=== PATIENT | male | born 1930 | race Caucasian/White ===

== ENCOUNTER 2016-11-18 13:51 | Inpatient (IN) | payer MEDICARE, OTHER ==
--- NOTE | 2016-11-18 14:34 | EDM.PDOC ---
ED HPI GENERAL MEDICAL PROBLEM - General Chief Complaint: Cardiovascular Problem Stated Complaint: SOB Time Seen by Provider: 11/18/16 14:05 Source of Information: Reports: Patient, EMS, Old Records History Limitations: Reports: Other (poor historian) - History of Present Illness INITIAL COMMENTS - FREE TEXT/NARRATIVE: 85 yo male was seen in the clinic today in follow up for SOB. Was seen a few days ago and started on Azithromycin and his furosemide dose was increased to 60 mg qd initially, then 2 days ago to 80 mg qd. No fever. No pain. Lab work available from 5 days ago shows anemia. Onset: Gradual Onset Date: 11/12/16 Duration: Day(s): Location: Reports: Chest Quality: Reports: Other (no pain) Severity: Moderate Improves with: Reports: Rest (and oxygen) Worsens with: Reports: Movement Context: Reports: Other (Hx of CHF and pneumonia) Associated Symptoms: Reports: Shortness of Breath. Denies: Fever/Chills Treatments MEDICAL TRANSCRIPTIONIST: Reports: Other (see below) (furosemide/azithromycin/increase in oxygen) - Related Data Allergies Allergy/AdvReac Type Severity Reaction Status Date / Time cephalexin monohydrate Allergy Hives Verified 04/23/16 13:04 [From Keflex] iodine Allergy Hives Verified 04/23/16 13:04 Home Meds: Home Meds Clopidogrel [Plavix] 75 mg PO DAILY 12/07/12 [History] Finasteride [Proscar] 5 mg PO DAILY 12/07/12 [History] Isosorbide Mononitrate [Imdur] 30 mg PO DAILY 12/07/12 [History] Terazosin [Hytrin] 4 mg PO BEDTIME 12/07/12 [History] Lutein/Minerals/Vit A,C & E [Ocuvite] 1 tab PO DAILY 03/02/15 [History] Albuterol [Proventil HFA] 2 puff INH Q4H PRN 03/11/16 [History] Tiotropium [Spiriva Handihaler] 1 puff INH DAILY 03/11/16 [History] glipiZIDE [Glucotrol] 2.5 mg PO DAILY 03/11/16 [History] Albuterol [Proventil Neb Soln] 2.5 mg NEB Q4H PRN 04/23/16 [History] Aspirin 81 mg PO DAILY 04/23/16 [History] Carvedilol 3.125 mg PO DAILY 04/23/16 [History] Compressor, For Nebulizer [Pulmo-Aide] 1 each MC TID 04/23/16 [History] Donepezil [Aricept] 5 mg PO BEDTIME 04/23/16 [History] Furosemide [Lasix] 80 mg PO DAILY 04/23/16 [History] Lisinopril 2.5 mg PO DAILY 04/23/16 [History] Polyethylene Glycol 3350 [MiraLAX] 17 gm PO DAILY PRN 04/23/16 [History] Simvastatin [Zocor] 10 mg PO BEDTIME 04/23/16 [History] Past Medical History HEENT History: Reports: Hard of Hearing, Impaired Vision Cardiovascular History: Reports: Bypass, Heart Failure Other Cardiovascular History: CABG Respiratory History: Reports: COPD, Intubation, Previous, SOB Gastrointestinal History: Reports: Bowel Obstruction Other Gastrointestinal History: bowel resection; bowel obstruction Musculoskeletal History: Reports: Arthritis, Fracture Neurological History: Reports: CVA Psychiatric History: Reports: Other (See Below) Other Psychiatric History: forgetfullness - Infectious Disease History Infectious Disease History: Reports: Chicken Pox, Hepatitis non A,B,C, Measles, Mononucleosis, Mumps, Pertussis (Whooping Cough), Shingles - Past Surgical History HEENT Surgical History: Reports: Cataract Surgery, Tonsillectomy Cardiovascular Surgical History: Reports: Coronary Artery Bypass, Coronary Artery Stent GI Surgical History: Reports: None, Hernia, Abdominal Musculoskeletal Surgical History: Reports: Hip Replacement, Knee Replacement Social & Family History - Family History Family Medical History: Noncontributory Other Cardiac Family History: maternal grandpa had a bad heart. Other Respiratory Family Hisory: pat is unsure OBGYN: Reports: Musculoskeletal: Reports: Arthritis Neurological: Reports: Alzheimers Disease, Dementia Hematologic: Reports: None Other Oncologic Family History: yes but he doese not remember which kinds. - Tobacco Use Smoking Status *Q: Never Smoker Years of Tobacco use: 50 Used Tobacco, but Quit: Yes Month Tobacco Last Used: February Second Hand Smoke Exposure: No - Caffeine Use Caffeine Use: Reports: None - Alcohol Use Days Per Week of Alcohol Use: 0 - Recreational Drug Use Recreational Drug Use: No Drug Use in Last 12 Months: No ED ROS GENERAL - Review of Systems Review Of Systems: See Below Constitutional: Reports: No Symptoms HEENT: Reports: No Symptoms Respiratory: Reports: Shortness of Breath. Denies: Wheezing, Pleuritic Chest Pain, Cough, Sputum, Hemoptysis Cardiovascular: Reports: No Symptoms Endocrine: Reports: No Symptoms GI/Abdominal: Reports: No Symptoms : Reports: No Symptoms Musculoskeletal: Reports: No Symptoms Skin: Reports: No Symptoms Neurological: Reports: No Symptoms Psychiatric: Reports: No Symptoms ED EXAM, GENERAL - Physical Exam Exam: See Below Exam Limited By: No Limitations General Appearance: Alert, WD/WN, No Apparent Distress Eye Exam: Bilateral Eye: Conjunctival Injection (pallor present) Ears: Normal External Exam, Normal Canal Ear Exam: Bilateral Ear: Auricle Normal, Canal Normal Nose: Normal Inspection, Normal Mucosa, No Blood Throat/Mouth: Normal Inspection, Normal Lips, Normal Teeth, Normal Oropharynx, Normal Voice, No Airway Compromise Head: Atraumatic, Normocephalic Neck: Normal Inspection, Supple, Non-Tender Respiratory/Chest: No Respiratory Distress, No Accessory Muscle Use, Decreased Breath Sounds (decreased BS at R base today. ) Cardiovascular: Regular Rate, Rhythm, No Edema, Bradycardia GI/Abdominal: Soft, Non-Tender, Pelvis Stable, Distended (mild) Back Exam: Normal Inspection. No: CVA Tenderness (R), CVA Tenderness (L) Extremities: Normal Inspection, Normal Range of Motion, Non-Tender Neurological: Alert, Oriented, CN II-XII Intact, No Motor/Sensory Deficits Psychiatric: Normal Affect, Normal Mood Skin Exam: Warm, Dry, Intact, Normal Color, No Rash, Pallor Lymphatic: No Adenopathy EKG INTERPRETATION EKG Date: 11/18/16 Time: 13:55 Rhythm: NSR Rate (Beats/Min): 82 [place]: Normal P-Wave: Present QRS: LBBB ST-T: Normal QT: Normal EKG Interpretation Comments: intermittent bigeminal rhythm is new. Course - Vital Signs Last Recorded V/S: Last Vital Signs Temp Pulse Resp BP Pulse Ox 96 11/18/16 14:10 - Orders/Labs/Meds Orders: Active Orders 24 hr Category Date Time Status Cardiac Monitoring [RC] .As Directed Care 11/18/16 13:57 Active Chest 1V Frontal [CR] Stat Exams 11/18/16 13:57 Taken MAGNESIUM [CHEM] Stat Lab 11/18/16 14:15 Received UA W/MICROSCOPIC [URIN] Stat Lab 11/18/16 13:58 Uncollected Sodium Chloride 0.9% [Saline Flush] Med 11/18/16 13:56 Active 10 ml FLUSH ASDIRECTED PRN Saline Lock Insert [OM.PC] Routine Oth 11/18/16 13:56 Ordered EKG 12 Lead [EK] Routine Ther 11/18/16 13:57 Ordered Medication Orders Sodium Chloride (Saline Flush) 10 ml FLUSH ASDIRECTED PRN PRN Reason: Keep Vein Open Labs: Laboratory Tests 11/18/16 11/18/16 11/18/16 Range/Units 14:15 14:15 14:15 WBC 6.5 (4.5-12.0) X10-3/uL RBC 3.43 L (4.30-5.75) x10(6)uL Hgb 10.3 L (11.5-15.5) g/dL Hct 30.9 (30.0-51.3) % MCV 90.3 (80-96) fL MCH 29.9 (27.7-33.6) pg MCHC 33.2 (32.2-35.4) g/dL RDW 13.9 (11.5-15.5) % Plt Count 206 (125-369) X10(3)uL Sodium 140 (135-145) mmol/L Potassium 2.6 L* D (3.5-5.3) mmol/L Chloride 105 (100-110) mmol/L Carbon Dioxide 27 (23-29) mmol/L BUN 31 H (8-23) mg/dL Creatinine 1.6 H (0.6-1.3) mg/dL Est Cr Clr Drug Dosing TNP Estimated GFR (MDRD) 41 L (>60) BUN/Creatinine Ratio 19.4 (9-20) Glucose 142 H (80-116) mg/dL Calcium 8.6 (8.6-10.2) mg/dL Troponin I 0.10 H (0.02-0.06) NG/ML B-Natriuretic Peptide (0-100) pg/mL 11/18/16 Range/Units 14:15 WBC (4.5-12.0) X10-3/uL RBC (4.30-5.75) x10(6)uL Hgb (11.5-15.5) g/dL Hct (30.0-51.3) % MCV (80-96) fL MCH (27.7-33.6) pg MCHC (32.2-35.4) g/dL RDW (11.5-15.5) % Plt Count (125-369) X10(3)uL Sodium (135-145) mmol/L Potassium (3.5-5.3) mmol/L Chloride (100-110) mmol/L Carbon Dioxide (23-29) mmol/L BUN (8-23) mg/dL Creatinine (0.6-1.3) mg/dL Est Cr Clr Drug Dosing Estimated GFR (MDRD) (>60) BUN/Creatinine Ratio (9-20) Glucose (80-116) mg/dL Calcium (8.6-10.2) mg/dL Troponin I (0.02-0.06) NG/ML B-Natriuretic Peptide 786 H (0-100) pg/mL Meds: Medications Generic Name Dose Route Start Last Admin Trade Name Freq PRN Reason Stop Dose Admin Sodium Chloride 10 ml 11/18/16 13:56 Saline Flush FLUSH ASDIRECTED PRN Keep Vein Open Discontinued Medications Generic Name Dose Route Start Last Admin Trade Name Freq PRN Reason Stop Dose Admin Potassium Chloride 40 meq 11/18/16 15:00 Klor-Con M20 PO 11/18/16 15:01 ONETIME ONE - Radiology Interpretation Free Text/Narrative:: CXR- Departure - Departure Time of Disposition: 15:13 Disposition: Admitted As Inpatient 66 Condition: Fair Clinical Impression: Hypokalemia, Hypoxia, Pleural effusion, Bigeminy CHF (congestive heart failure) Qualifiers: Congestive heart failure type: unspecified congestive heart failure type Congestive heart failure chronicity: acute on chronic Qualified Code(s): I50.9 - Heart failure, unspecified Pneumonia Qualifiers: Pneumonia type: due to unspecified organism Anemia Qualifiers: Anemia type: unspecified type Qualified Code(s): D64.9 - Anemia, unspecified Referrals: Kervin Santa MD [Primary Care Provider] - Forms: ED Department Discharge - My Orders Last 24 Hours: My Active Orders 11/18/16 13:56 Sodium Chloride 0.9% [Saline Flush] 10 ml FLUSH ASDIRECTED PRN Saline Lock Insert [OM.PC] Routine 11/18/16 13:57 Cardiac Monitoring [RC] .As Directed Chest 1V Frontal [CR] Stat EKG 12 Lead [EK] Routine 11/18/16 13:58 UA W/MICROSCOPIC [URIN] Stat 11/18/16 14:15 MAGNESIUM [CHEM] Stat - Assessment/Plan Last 24 Hours: My Active Orders 11/18/16 13:56 Sodium Chloride 0.9% [Saline Flush] 10 ml FLUSH ASDIRECTED PRN Saline Lock Insert [OM.PC] Routine 11/18/16 13:57 Cardiac Monitoring [RC] .As Directed Chest 1V Frontal [CR] Stat EKG 12 Lead [EK] Routine 11/18/16 13:58 UA W/MICROSCOPIC [URIN] Stat 11/18/16 14:15 MAGNESIUM [CHEM] Stat
[2016-11-18] MEDS ORDERED: Potassium Chloride 10 MEQ Tab.ER PO ONE (14:44)
[2016-11-18] MEDS ORDERED: Potassium Chloride 20 MEQ Tab.ER PO ONE (15:00)
--- NOTE | 2016-11-18 15:15 | CR ---
INDICATION: Short of breath. CHEST: AP upright portable view of the chest 11/18/2016, was compared with 09/2016, 04/10/2016(Lam image), and 11/13/2016 examinations. The heart appears somewhat enlarged. Evidence of previous median sternotomy is noted. Overlying EKG leads are noted. Pleuroparenchymal changes are noted on the right and to a much lesser extent on the left. It may represent pneumonia and pleuritis, possibly due to aspiration. Heavy markings centrally may also be on that basis, although interstitial lung edema in a patient with CHF would also be a consideration. Relatively minor similar changes were present on the previous examination. IMPRESSION: 1. Bibasilar pleuroparenchymal changes, right much greater than left, may be on the basis of pneumonia and pleuritis, possibly due to aspiration - correlate clinically. 2. Possible CHF and interstitial lung edema. 3. Post-surgical mediastinum. Report was called to Dr. Gill at 1458 hours, 11/18/2016. [facility]
[2016-11-18] MEDS ORDERED: Polyethylene Glycol 3350 Powder 17 GM Packet PO PRN ×2 (15:21→17:42)
[2016-11-18] MEDS ORDERED: Ondansetron 4 MG Tab.DIS PO PRN (15:21)
[2016-11-18] MEDS: Sodium Chloride 0.9% 10 ML Syringe FLUSH PRN ×3 (15:21→23:52)
[2016-11-18] MEDS ORDERED: Acetaminophen 325 MG Tab PO PRN ×2 (15:21→17:42)
[2016-11-18] MEDS ORDERED: Sodium Chloride 0.9% 250 ML IV SCH (16:40)
[2016-11-18] MEDS: Levofloxacin/Dextrose 5%-Water 500 MG in Premix Bag 1 BAG IV SCH (16:40)
[2016-11-18] MEDS: Potassium Chloride 20 MEQ Tab.ER PO SCH ×2 (16:43→20:50)
[2016-11-18] MEDS: Spironolactone 25 MG Tab PO SCH (16:44)
[2016-11-18] MEDS: Albuterol 0.083% 2.5 MG/3 ML Neb Soln NEB PRN (16:57)
--- NOTE | 2016-11-18 17:37 | PCM.HP ---
H&P History of Present Illness - General Date of Service: 11/18/16 Source of Information: Patient, Family History Limitations: Reports: No Limitations - History of Present Illness Initial Comments - Free Text/Narative: This is an 85-year-old male patient with known history of CHF and COPD comes in to the clinic and was diagnosed with pneumonia and CHF. Increase Lasix and gave Zithromax. He came back and is more short of breath and sent to the ER. He was admitted. Patient states he's been more short of breath for the last week. He has a dry cough. He feels like he should cough something up but it is not there. He feels cool at times but no chills or fevers. No nasal congestion, ear pain, sore throat. He does have no chest pain this time. He was in the hospital in the spring for COPD and pneumonia. - Related Data Allergies/Adverse Reactions: Allergies Allergy/AdvReac Type Severity Reaction Status Date / Time cephalexin monohydrate Allergy Hives Verified 11/18/16 17:02 [From Novatel Wireless] iodine Allergy Hives Verified 11/18/16 17:02 Home Medications: Home Meds Clopidogrel [Plavix] 75 mg PO DAILY 12/07/12 [History] Finasteride [Proscar] 5 mg PO DAILY 12/07/12 [History] Isosorbide Mononitrate [Imdur] 30 mg PO DAILY 12/07/12 [History] Terazosin [Hytrin] 4 mg PO BEDTIME 12/07/12 [History] Lutein/Minerals/Vit A,C & E [Ocuvite] 1 tab PO DAILY 03/02/15 [History] Albuterol [Proventil HFA] 2 puff INH Q4H PRN 03/11/16 [History] Tiotropium [Spiriva Handihaler] 1 puff INH DAILY 03/11/16 [History] glipiZIDE [Glucotrol] 2.5 mg PO DAILY 03/11/16 [History] Albuterol [Proventil Neb Soln] 2.5 mg NEB Q4H PRN 04/23/16 [History] Aspirin 81 mg PO DAILY 04/23/16 [History] Carvedilol 3.125 mg PO DAILY 04/23/16 [History] Compressor, For Nebulizer [Pulmo-Aide] 1 each MC TID 04/23/16 [History] Donepezil [Aricept] 5 mg PO BEDTIME 04/23/16 [History] Furosemide [Lasix] 80 mg PO DAILY 04/23/16 [History] Lisinopril 2.5 mg PO DAILY 04/23/16 [History] Polyethylene Glycol 3350 [MiraLAX] 17 gm PO DAILY PRN 04/23/16 [History] Simvastatin [Zocor] 10 mg PO BEDTIME 04/23/16 [History] Acetaminophen [Tylenol] 650 mg PO Q4H PRN 11/18/16 [History] Albuterol/Ipratropium [DuoNeb 3.0-0.5 MG/3 ML] 3 ml IH Q4H PRN 11/18/16 [History ] Bisacodyl 10 mg RECTAL DAILY PRN 11/18/16 [History] Lactulose 10 gm PO DAILY PRN 11/18/16 [History] Magnesium Hydroxide [Milk of Magnesia] 30 ml PO DAILY PRN 11/18/16 [History] Polyethylene Glycol 3350 [MiraLAX] 17 gm PO DAILY PRN 11/18/16 [History] Past Medical History HEENT History: Reports: Hard of Hearing, Impaired Vision Cardiovascular History: Reports: Bypass, Heart Failure Other Cardiovascular History: CABG Respiratory History: Reports: COPD, Intubation, Previous, SOB Gastrointestinal History: Reports: Bowel Obstruction Other Gastrointestinal History: bowel resection; bowel obstruction Musculoskeletal History: Reports: Arthritis, Fracture Neurological History: Reports: CVA Psychiatric History: Reports: Other (See Below) Other Psychiatric History: forgetfullness - Infectious Disease History Infectious Disease History: Reports: Chicken Pox, Hepatitis non A,B,C, Measles, Mononucleosis, Mumps, Pertussis (Whooping Cough), Shingles - Past Surgical History HEENT Surgical History: Reports: Cataract Surgery, Tonsillectomy Cardiovascular Surgical History: Reports: Coronary Artery Bypass, Coronary Artery Stent GI Surgical History: Reports: None, Hernia, Abdominal Musculoskeletal Surgical History: Reports: Hip Replacement, Knee Replacement Social & Family History - Family History Family Medical History: Noncontributory Other Cardiac Family History: maternal grandpa had a bad heart. Other Respiratory Family Hisory: pat is unsure OBGYN: Reports: Musculoskeletal: Reports: Arthritis Neurological: Reports: Alzheimers Disease, Dementia Hematologic: Reports: None Other Oncologic Family History: yes but he doese not remember which kinds. - Tobacco Use Smoking Status *Q: Former Smoker Years of Tobacco use: 50 Used Tobacco, but Quit: Yes Month Tobacco Last Used: Quit 6 years ago Second Hand Smoke Exposure: No - Caffeine Use Caffeine Use: Reports: Coffee - Alcohol Use Days Per Week of Alcohol Use: 0 - Recreational Drug Use Recreational Drug Use: No Drug Use in Last 12 Months: No H&P Review of Systems - Review of Systems: Review Of Systems: See Below General: Reports: No Symptoms HEENT: Reports: No Symptoms Pulmonary: Reports: Shortness of Breath, Cough. Denies: Wheezing, Sputum, Hemoptysis Cardiovascular: Reports: Edema Gastrointestinal: Reports: Constipation Genitourinary: Reports: No Symptoms Musculoskeletal: Reports: No Symptoms Skin: Reports: No Symptoms Psychiatric: Reports: No Symptoms Neurological: Reports: No Symptoms Hematologic/Lymphatic: Reports: No Symptoms Immunologic: Reports: No Symptoms Exam - Exam Exam: See Below - Vital Signs Vital Signs: Last Vital Signs Temp 98 F 11/18/16 15:46 Pulse 77 11/18/16 15:46 Resp 20 11/18/16 15:46 BP 121/58 L 11/18/16 15:46 Pulse Ox 96 11/18/16 15:49 Weight: 176 lb 1.6 oz - Exam General: Alert, Oriented, Cooperative. No: Mild Distress HEENT: PERRLA, Hearing Intact, Posterior Pharynx Clear, Pupils Reactive, TMs Clear Neck: Supple, Trachea Midline. No: +2 Carotid Pulse wo Bruit, Lymphadenopathy Lungs: Normal Respiratory Effort, Decreased Breath Sounds, Crackles Cardiovascular: Regular Rate, Regular Rhythm. No: Systolic Murmur, Diastolic Murmur GI/Abdominal Exam: Normal Bowel Sounds, Soft, Non-Tender, No Organomegaly, No Distention, No Abnormal Bruit, No Mass Back Exam: Normal Inspection Extremities: Pedal Edema Skin: Warm, Dry, Intact Neuro Extensive - Mental Status: Alert, Oriented x3, Normal Mood/Affect, Normal Cognition Psychiatric: Alert, Normal Affect, Normal Mood - Patient Data Lab Results Last 24 hrs: Laboratory Results - last 24 hr 11/18/16 Range/Units 16:55 Urine Color Yellow (YELLOW) Urine Appearance Clear (CLEAR) Urine pH 5.0 (5.0-6.5) Ur Specific [place] 1.015 (1.010-1.025) Urine Protein Negative (NEGATIVE) mg/dL Urine Glucose (UA) Normal (NEGATIVE) mg/dL Urine Ketones Negative (NEGATIVE) mg/dL Urine Occult Blood Negative (NEGATIVE) Urine Nitrite Negative (NEGATIVE) Urine Bilirubin Negative (NEGATIVE) Urine Urobilinogen Normal (NEGATIVE) mg/dL Ur Leukocyte Esterase Negative (NEGATIVE) Urine RBC 0-5 (0) Urine WBC 0-5 (0) Ur Squamous Epith Cells Occasional (NS,R,O) Urine Bacteria Rare H (NS) Result Diagrams: 11/18/16 14:15 11/18/16 14:15 *Q Meaningful Use (ADM) - VTE *Q VTE Criteria *Q: - Stroke *Q Stroke Criteria *Q: - AMI *Q AMI Criteria *Q: - Problem List (1) Palliative care status SNOMED Code(s): 281986155 ICD Code: Z51.5 - ENCOUNTER FOR PALLIATIVE CARE Status: Acute Current Visit: Yes (2) Anemia SNOMED Code(s): 877206537 ICD Code: D64.9 - ANEMIA, UNSPECIFIED Status: Acute Current Visit: Yes Qualifiers: Anemia type: unspecified type Qualified Code(s): D64.9 - Anemia, unspecified (3) CHF (congestive heart failure) SNOMED Code(s): 33478725 ICD Code: I50.9 - HEART FAILURE, UNSPECIFIED Status: Acute Current Visit : Yes Qualifiers: Congestive heart failure type: unspecified congestive heart failure type Congestive heart failure chronicity: acute on chronic Qualified Code(s): I50.9 - Heart failure, unspecified (4) Hypokalemia SNOMED Code(s): 60197254 ICD Code: E87.6 - HYPOKALEMIA Status: Acute Current Visit: Yes (5) Pneumonia SNOMED Code(s): 719516971 ICD Code: J18.9 - PNEUMONIA, UNSPECIFIED ORGANISM Status: Acute Current Visit: Yes Qualifiers: Pneumonia type: due to unspecified organism (6) COPD (chronic obstructive pulmonary disease) SNOMED Code(s): 60499018 ICD Code: J44.9 - CHRONIC OBSTRUCTIVE PULMONARY DISEASE, UNSPECIFIED Status : Acute Current Visit: No (7) Type 2 diabetes mellitus SNOMED Code(s): 36872540 ICD Code: E11.9 - TYPE 2 DIABETES MELLITUS WITHOUT COMPLICATIONS Status: Acute Current Visit: No (8) Chronic kidney disease, stage III (moderate) SNOMED Code(s): 134542576 ICD Code: N18.3 - CHRONIC KIDNEY DISEASE, STAGE 3 (MODERATE) Status: Chronic Priority: Medium Current Visit: No Problem Details: Stable Cr 1.4-1.6. Problem List Initiated/Reviewed/Updated: Yes Orders Last 24hrs: Active Orders 24 hr Category Date Time Status Albuterol [Proventil Neb Soln] Med 11/18/16 15:55 Active 2.5 mg NEB Q4H PRN Albuterol [Ventolin HFA] Med 11/18/16 15:55 Active 0 gm INH Q4H PRN Aspirin Med 11/19/16 09:00 Active 81 mg PO DAILY Carvedilol [Coreg] Med 11/19/16 09:00 Active 3.125 mg PO DAILY Clopidogrel [Plavix] Med 11/19/16 09:00 Active 75 mg PO DAILY Donepezil [Aricept] Med 11/18/16 21:00 Active 5 mg PO BEDTIME Finasteride [Proscar] Med 11/19/16 09:00 Active 5 mg PO DAILY Furosemide [Lasix] Med 11/19/16 09:00 Active 80 mg PO DAILY Isosorbide Mononitrate [Imdur] Med 11/19/16 09:00 Active 30 mg PO DAILY Levofloxacin/Dextrose 5%-Water [Levaquin in D5W 500 MG/ Med 11/18/16 15:30 Active 100 ML] 500 mg Premix Bag 1 bag IV Q24H Lisinopril [Prinivil] Med 11/19/16 09:00 Active 2.5 mg PO DAILY Potassium Chloride [Klor-Con M20] Med 11/18/16 15:30 Active 20 meq PO TID Simvastatin [Zocor] Med 11/18/16 21:00 Active 10 mg PO BEDTIME Terazosin [Hytrin] Med 11/18/16 21:00 Active 4 mg PO BEDTIME Tiotropium [Spiriva HandiHaler] Med 11/19/16 09:00 Active 18 mcg INH DAILY glipiZIDE [Glucotrol] Med 11/19/16 09:00 Active 2.5 mg PO DAILY Medication Orders Acetaminophen (Tylenol) 650 mg PO Q4H PRN PRN Reason: Pain (Mild 1-3)/fever Albuterol (Ventolin Hfa) 0 gm INH Q4H PRN PRN Reason: Shortness of Breath Albuterol (Proventil Neb Soln) 2.5 mg NEB Q4H PRN PRN Reason: SOB/WHEEZING/COUGH Aspirin (Aspirin) 81 mg PO DAILY [facility] Carvedilol (Coreg) 3.125 mg PO DAILY [place] Clopidogrel Bisulfate (Plavix) 75 mg PO DAILY [place] Donepezil HCl (Aricept) 5 mg PO BEDTIME [place] Finasteride (Proscar) 5 mg PO DAILY [facility] Furosemide (Lasix) 80 mg PO DAILY [place] Glipizide (Glucotrol) 2.5 mg PO DAILY [place] Levofloxacin/Dextrose 500 mg/ (Premix) 100 mls @ 100 mls/hr IV Q24H [facility] Last Admin: 11/18/16 16:40 Dose: 100 mls/hr Isosorbide Mononitrate (Imdur) 30 mg PO DAILY [facility] Lisinopril (Prinivil) 2.5 mg PO DAILY [facility] Ondansetron HCl (Zofran Odt) 4 mg PO Q6H PRN PRN Reason: nausea, able to take PO Polyethylene Glycol (Miralax) 17 gm PO DAILY PRN PRN Reason: Constipation Potassium Chloride (Klor-Con M20) 20 meq PO TID [facility] Last Admin: 11/18/16 16:43 Dose: 20 meq Simvastatin (Zocor) 10 mg PO BEDTIME [place] Sodium Chloride (Saline Flush) 10 ml FLUSH ASDIRECTED PRN PRN Reason: Keep Vein Open Last Admin: 11/18/16 15:21 Dose: 10 ml Spironolactone (Aldactone) 25 mg PO DAILY [facility] Last Admin: 11/18/16 16:44 Dose: 25 mg Terazosin HCl (Hytrin) 4 mg PO BEDTIME [place] Tiotropium [place] (Spiriva Handihaler) 18 mcg INH DAILY [facility] Assessment/Plan Comment:: 1. Admit to the hospital. 2. Discuss CODE STATUS needle wants to be a DNR/DNI 3. VTE prophylaxis 4. Antibiotics 5. IV Lasix. 6. Granados catheter so the patient can be comfortable night with IV Lasix. 7. SVNs 8. Hold off on steroids at this time but may consider if he is not improving. 9. ADA diet 10. Up with assist.
[2016-11-18] MEDS ORDERED: Furosemide 40 MG/4 ML VIAL IVPUSH ONE (17:39)
[2016-11-18] MEDS ORDERED: Bisacodyl 10 MG Supp RECTAL PRN (17:42)
[2016-11-18] MEDS ORDERED: Magnesium Hydroxide 400 MG/5 ML Susp 30 ML Cup PO PRN (17:42)
[2016-11-18] MEDS ORDERED: Polyethylene Glycol 3350 Powder 238 GM Bot PO PRN (17:42)
[2016-11-18] MEDS: Albuterol 8 GM Inhaler INH PRN (17:50)
[2016-11-18] MEDS: Albuterol/Ipratropium 3.0-0.5 MG/3 ML Neb Soln NEB PRN ×2 (17:59→22:51)
[2016-11-18] MEDS: Morphine 2 MG/ML Syringe IVPUSH PRN ×2 (18:58→23:50)
[2016-11-18] MEDS: Donepezil 5 MG Tab PO SCH (20:48)
[2016-11-18] MEDS: Simvastatin 10 MG Tab PO SCH (20:51)
[2016-11-18] MEDS ORDERED: [UNRECOGNIZED DRUG - SUPPLY] MC SCH (21:00)
[2016-11-18] MEDS: Enoxaparin 30 MG/0.3 ML Syringe SUBCUT SCH (21:12)
[2016-11-19] MEDS: Morphine 2 MG/ML Syringe IVPUSH PRN ×2 (03:40→05:31)
[2016-11-19] MEDS: Albuterol/Ipratropium 3.0-0.5 MG/3 ML Neb Soln NEB PRN ×4 (03:44→20:45)
[2016-11-19] MEDS ORDERED: Enoxaparin 80 MG/0.8 ML Syringe SUBCUT ONE ×2 (04:44)
[2016-11-19] MEDS ORDERED: Furosemide 100 MG/10 ML SDV IVPUSH ONE (08:06)
[2016-11-19] MEDS: methylPREDNISolone Sodium Succinate 125 MG/2 ML SDV IVPUSH SCH ×2 (08:36→16:10)
[2016-11-19] MEDS: Sodium Chloride 0.9% 10 ML Syringe FLUSH PRN ×2 (08:37→13:04)
[2016-11-19] MEDS ORDERED: Lactulose Soln 10 GM/15 ML 15 ML UD Cup PO PRN (09:00)
[2016-11-19] MEDS ORDERED: Furosemide 80 MG Tab PO SCH (09:00)
[2016-11-19] MEDS: Aspirin 81 MG Tab.Chew PO SCH (09:05)
[2016-11-19] MEDS: Carvedilol 3.125 MG Tab PO SCH (09:05)
[2016-11-19] MEDS: Spironolactone 25 MG Tab PO SCH (09:05)
[2016-11-19] MEDS: Isosorbide Mononitrate 30 MG Tab.ER PO SCH (09:06)
[2016-11-19] MEDS: glipiZIDE 5 MG Tab PO SCH (09:06)
[2016-11-19] MEDS: Potassium Chloride 20 MEQ Tab.ER PO SCH ×2 (09:07→20:43)
[2016-11-19] MEDS: Finasteride 5 MG Tab PO SCH (09:07)
[2016-11-19] MEDS: Lisinopril 2.5 MG Tab PO SCH (09:07)
[2016-11-19] MEDS: Lutein/Minerals/Vitamin C/Vitamin E Acetate Cap PO SCH (09:07)
[2016-11-19] MEDS: Tiotropium Inhaler 18 MCG Inhalation Powder Cap Kit of 5 INH SCH (09:08)
[2016-11-19] MEDS: Albuterol 0.083% 2.5 MG/3 ML Neb Soln NEB PRN (11:01)
[2016-11-19] MEDS ORDERED: Iopamidol 755 Mg/ML 75 ML Bottle IV ONE (12:46)
[2016-11-19] MEDS ORDERED: diphenhydrAMINE 50 MG/ML SDV IM ONE (12:55)
[2016-11-19] MEDS ORDERED: Sodium Chloride 0.9% 250 ML IV ONE (13:00)
--- NOTE | 2016-11-19 15:10 | CT ---
INDICATION: Elevated D-dimer, question pulmonary embolus, increased shortness of breath. Former smoker. COMPUTERIZED TOMOGRAPHY ANGIOGRAPHY OF THE CHEST WITH CONTRAST: Utilizing 1.25- mm spiral imaging of the chest with 64 mL Isovue-370 at 3.5 mL per second, with sagittal and coronal reconstructions, exam was obtained 11/19/2016 - no comparisons. Total Exam DLP = 727.75 mGy-cm. No evidence of pulmonary embolus could be identified. There is extensive coronary artery calcification. Aortic calcification is also noted. The heart is enlarged. There appears to be thinning of the left ventricular wall. There is some distention of the colon with air. Low-density lesion left kidney , approximately 2.5 cm, likely a cyst. Renal artery and superior mesenteric artery, as well as splenic artery calcifications are also noted. Infiltration is noted in the interstitium and with the enlarged heart, findings suggest CHF with interstitial lung edema. Bilateral pleural effusions are noted , larger on the right than left, but significant size bilaterally. There also appears to be atelectasis and/or consolidation in the middle lobe and right lower lobe. Findings may be on the basis of pneumonia. Patchier areas of infiltrate in the middle lobe may be also on the basis of pneumonia or possibly acute pulmonary edema - correlate clinically. Mediastinal lymphadenopathy is relatively mild and nonspecific. IMPRESSION: 1. CHF with interstitial lung edema, possibly some minimal areas of alveolar lung edema. 2. Probable pneumonia and/or atelectasis at the lung bases with moderately large pleural effusions, especially on the right. Report was called to Dr. Nobles at 1435 hours, 11/19/2016. [facility]
[2016-11-19] MEDS ORDERED: Furosemide 40 MG/4 ML VIAL IVPUSH ONE (16:00)
--- NOTE | 2016-11-19 16:48 | PCM.PN ---
- General Info Date of Service: 11/19/16 Admission Dx/Problem (Free Text): Patient became more short of breath last night. ER doc saw him and he ended up on a nonrebreather than a BiPAP. On BiPAP he was doing well. He was not given Lasix but a d-dimer was elevated so full dose of Lovenox for PE was given. This morning he is breathing a little bit better. He's had a cough. He denies fevers , chills, chest pain. He still has leg swelling. - Patient Data Vitals - Most Recent: Last Vital Signs Temp 98.4 F 11/19/16 16:00 Pulse 92 11/19/16 16:00 Resp 20 11/19/16 16:00 BP 113/63 11/19/16 16:00 Pulse Ox 95 11/19/16 16:00 Weight - Most Recent: 166 lb 3.2 oz I&O - Last 24 Hours: Intake & Output 11/19/16 11/19/16 11/19/16 06:59 14:59 22:59 Intake Total 100 700 Output Total 550 650 Balance -450 50 Lab Results Last 24 Hours: Laboratory Results - last 24 hr 11/18/16 11/19/16 11/19/16 Range/Units 16:55 04:15 04:15 WBC 6.9 (4.5-12.0) X10-3/uL RBC 3.62 L (4.30-5.75) x10(6)uL Hgb 10.7 L (11.5-15.5) g/dL Hct 33.0 (30.0-51.3) % MCV 91.2 (80-96) fL MCH 29.6 (27.7-33.6) pg MCHC 32.5 (32.2-35.4) g/dL RDW 14.1 (11.5-15.5) % Plt Count 199 (125-369) X10(3)uL MPV 8.2 (7.4-10.4) fL Neut % (Auto) 78.5 (46-82) % Lymph % (Auto) 10.4 L (13-37) % Carson % (Auto) 8.9 (4-12) % Eos % (Auto) 2 (1.0-5.0) % Baso % (Auto) 0 (0-2) % Neut # (Auto) 5.5 (1.6-8.3) # Lymph # (Auto) 0.7 (0.6-5.0) # Carson # (Auto) 0.6 (0.0-1.3) # Eos # (Auto) 0.1 (0.0-0.8) # Baso # (Auto) 0.0 (0.0-0.2) # D-Dimer, Quantitative (100-400) ng/mL Sodium 142 (135-145) mmol/L Potassium 3.1 L (3.5-5.3) mmol/L Chloride 106 (100-110) mmol/L Carbon Dioxide 27 (23-29) mmol/L BUN 27 H (8-23) mg/dL Creatinine 1.5 H (0.6-1.3) mg/dL Est Cr Clr Drug Dosing 37.18 mL/min Estimated GFR (MDRD) 44 L (>60) BUN/Creatinine Ratio 18.0 (9-20) Glucose 152 H (80-116) mg/dL POC Glucose (80-116) mg/dL Calcium 8.5 L (8.6-10.2) mg/dL Total Bilirubin 0.5 (0.1-1.3) mg/dL AST 13 (5-27) IU/L ALT 10 L D (14-26) IU/L Alkaline Phosphatase 70 (56-112) IU/L Troponin I (0.02-0.06) NG/ML B-Natriuretic Peptide (0-100) pg/mL Total Protein 6.4 (6.0-8.0) g/dL Albumin 3.2 (3.2-4.6) g/dL Globulin 3.2 g/dL Albumin/Globulin Ratio 1.0 Urine Color Yellow (YELLOW) Urine Appearance Clear (CLEAR) Urine pH 5.0 (5.0-6.5) Ur Specific Franklin 1.015 (1.010-1.025) Urine Protein Negative (NEGATIVE) mg/dL Urine Glucose (UA) Normal (NEGATIVE) mg/dL Urine Ketones Negative (NEGATIVE) mg/dL Urine Occult Blood Negative (NEGATIVE) Urine Nitrite Negative (NEGATIVE) Urine Bilirubin Negative (NEGATIVE) Urine Urobilinogen Normal (NEGATIVE) mg/dL Ur Leukocyte Esterase Negative (NEGATIVE) Urine RBC 0-5 (0) Urine WBC 0-5 (0) Ur Squamous Epith Cells Occasional (NS,R,O) Urine Bacteria Rare H (NS) 11/19/16 11/19/16 11/19/16 Range/Units 04:15 04:15 04:15 WBC (4.5-12.0) X10-3/uL RBC (4.30-5.75) x10(6)uL Hgb (11.5-15.5) g/dL Hct (30.0-51.3) % MCV (80-96) fL MCH (27.7-33.6) pg MCHC (32.2-35.4) g/dL RDW (11.5-15.5) % Plt Count (125-369) X10(3)uL MPV (7.4-10.4) fL Neut % (Auto) (46-82) % Lymph % (Auto) (13-37) % Carson % (Auto) (4-12) % Eos % (Auto) (1.0-5.0) % Baso % (Auto) (0-2) % Neut # (Auto) (1.6-8.3) # Lymph # (Auto) (0.6-5.0) # Carson # (Auto) (0.0-1.3) # Eos # (Auto) (0.0-0.8) # Baso # (Auto) (0.0-0.2) # D-Dimer, Quantitative 4450 H (100-400) ng/mL Sodium (135-145) mmol/L Potassium (3.5-5.3) mmol/L Chloride (100-110) mmol/L Carbon Dioxide (23-29) mmol/L BUN (8-23) mg/dL Creatinine (0.6-1.3) mg/dL Est Cr Clr Drug Dosing mL/min Estimated GFR (MDRD) (>60) BUN/Creatinine Ratio (9-20) Glucose (80-116) mg/dL POC Glucose (80-116) mg/dL Calcium (8.6-10.2) mg/dL Total Bilirubin (0.1-1.3) mg/dL AST (5-27) IU/L ALT (14-26) IU/L Alkaline Phosphatase (56-112) IU/L Troponin I 0.15 H (0.02-0.06) NG/ML B-Natriuretic Peptide 1130 H* (0-100) pg/mL Total Protein (6.0-8.0) g/dL Albumin (3.2-4.6) g/dL Globulin g/dL Albumin/Globulin Ratio Urine Color (YELLOW) Urine Appearance (CLEAR) Urine pH (5.0-6.5) Ur Specific Franklin (1.010-1.025) Urine Protein (NEGATIVE) mg/dL Urine Glucose (UA) (NEGATIVE) mg/dL Urine Ketones (NEGATIVE) mg/dL Urine Occult Blood (NEGATIVE) Urine Nitrite (NEGATIVE) Urine Bilirubin (NEGATIVE) Urine Urobilinogen (NEGATIVE) mg/dL Ur Leukocyte Esterase (NEGATIVE) Urine RBC (0) Urine WBC (0) Ur Squamous Epith Cells (NS,R,O) Urine Bacteria (NS) 11/19/16 Range/Units 11:32 WBC (4.5-12.0) X10-3/uL RBC (4.30-5.75) x10(6)uL Hgb (11.5-15.5) g/dL Hct (30.0-51.3) % MCV (80-96) fL MCH (27.7-33.6) pg MCHC (32.2-35.4) g/dL RDW (11.5-15.5) % Plt Count (125-369) X10(3)uL MPV (7.4-10.4) fL Neut % (Auto) (46-82) % Lymph % (Auto) (13-37) % Carson % (Auto) (4-12) % Eos % (Auto) (1.0-5.0) % Baso % (Auto) (0-2) % Neut # (Auto) (1.6-8.3) # Lymph # (Auto) (0.6-5.0) # Carson # (Auto) (0.0-1.3) # Eos # (Auto) (0.0-0.8) # Baso # (Auto) (0.0-0.2) # D-Dimer, Quantitative (100-400) ng/mL Sodium (135-145) mmol/L Potassium (3.5-5.3) mmol/L Chloride (100-110) mmol/L Carbon Dioxide (23-29) mmol/L BUN (8-23) mg/dL Creatinine (0.6-1.3) mg/dL Est Cr Clr Drug Dosing mL/min Estimated GFR (MDRD) (>60) BUN/Creatinine Ratio (9-20) Glucose (80-116) mg/dL POC Glucose 199 H D (80-116) mg/dL Calcium (8.6-10.2) mg/dL Total Bilirubin (0.1-1.3) mg/dL AST (5-27) IU/L ALT (14-26) IU/L Alkaline Phosphatase (56-112) IU/L Troponin I (0.02-0.06) NG/ML B-Natriuretic Peptide (0-100) pg/mL Total Protein (6.0-8.0) g/dL Albumin (3.2-4.6) g/dL Globulin g/dL Albumin/Globulin Ratio Urine Color (YELLOW) Urine Appearance (CLEAR) Urine pH (5.0-6.5) Ur Specific Franklin (1.010-1.025) Urine Protein (NEGATIVE) mg/dL Urine Glucose (UA) (NEGATIVE) mg/dL Urine Ketones (NEGATIVE) mg/dL Urine Occult Blood (NEGATIVE) Urine Nitrite (NEGATIVE) Urine Bilirubin (NEGATIVE) Urine Urobilinogen (NEGATIVE) mg/dL Ur Leukocyte Esterase (NEGATIVE) Urine RBC (0) Urine WBC (0) Ur Squamous Epith Cells (NS,R,O) Urine Bacteria (NS) Tyron Results Last 24 Hours: Microbiology 11/18/16 22:50 Stool Occult Blood (TYRON) - Final Stool / Feces NEGATIVE OCCULT BLOOD Med Orders - Current: Current Medications Acetaminophen (Tylenol) 650 mg PO Q4H PRN PRN Reason: Pain/Fever Albuterol (Ventolin Hfa) 0 gm INH Q4H PRN PRN Reason: Shortness of Breath Last Admin: 11/18/16 17:50 Dose: 2 inhalation Albuterol (Proventil Neb Soln) 2.5 mg NEB Q4H PRN PRN Reason: SOB/WHEEZING/COUGH Last Admin: 11/19/16 11:01 Dose: 2.5 mg Albuterol/Ipratropium (Duoneb 3.0-0.5 Mg/3 Ml) 3 ml NEB Q4H PRN PRN Reason: Shortness of Breath Last Admin: 11/19/16 14:50 Dose: 3 ml Aspirin (Aspirin) 81 mg PO DAILY [facility] Last Admin: 11/19/16 09:05 Dose: 81 mg Bisacodyl (Dulcolax) 10 mg RECTAL DAILY PRN PRN Reason: Constipation Carvedilol (Coreg) 3.125 mg PO DAILY [facility] Last Admin: 11/19/16 09:05 Dose: 3.125 mg Clopidogrel Bisulfate (Plavix) 75 mg PO DAILY [facility] Donepezil HCl (Aricept) 5 mg PO BEDTIME [facility] Last Admin: 11/18/16 20:48 Dose: 5 mg Enoxaparin Sodium (Lovenox) 30 mg SUBCUT Q24H [facility] Last Admin: 11/18/16 21:12 Dose: 30 mg Finasteride (Proscar) 5 mg PO DAILY [facility] Last Admin: 11/19/16 09:07 Dose: 5 mg Glipizide (Glucotrol) 2.5 mg PO DAILY [facility] Last Admin: 11/19/16 09:06 Dose: 2.5 mg Sodium Chloride (Normal Saline) 250 mls @ 100 mls/hr IV ASDIRECTED [facility] Last Admin: 11/18/16 16:40 Dose: 100 mls/hr Levofloxacin/Dextrose 750 mg/ (Premix) 150 mls @ 100 mls/hr IV Q24H [facility] Isosorbide Mononitrate (Imdur) 30 mg PO DAILY [facility] Last Admin: 11/19/16 09:06 Dose: 30 mg Lactulose (Chronulac) 10 gm PO DAILY PRN PRN Reason: CONSTIPATION Lisinopril (Prinivil) 2.5 mg PO DAILY [facility] Last Admin: 11/19/16 09:07 Dose: 2.5 mg Magnesium Hydroxide (Milk Of Magnesia) 30 ml PO DAILY PRN PRN Reason: Constipation Methylprednisolone Sodium Succinate (Solu-Medrol) 125 mg IVPUSH Q8H [facility] Last Admin: 11/19/16 16:10 Dose: 125 mg Morphine Sulfate (Morphine) 1 mg IVPUSH Q1H PRN PRN Reason: Dyspnea Last Admin: 11/19/16 05:31 Dose: 1 mg Ondansetron HCl (Zofran Odt) 4 mg PO Q6H PRN PRN Reason: nausea, able to take PO Polyethylene Glycol (Miralax) 17 gm PO DAILY PRN PRN Reason: Constipation Potassium Chloride (Klor-Con M20) 20 meq PO TID [facility] Last Admin: 11/19/16 09:07 Dose: 20 meq Simvastatin (Zocor) 10 mg PO BEDTIME [facility] Last Admin: 11/18/16 20:51 Dose: 10 mg Sodium Chloride (Saline Flush) 10 ml FLUSH ASDIRECTED PRN PRN Reason: Keep Vein Open Last Admin: 11/19/16 13:04 Dose: 10 ml Spironolactone (Aldactone) 25 mg PO DAILY [facility] Last Admin: 11/19/16 09:05 Dose: 25 mg Terazosin HCl (Hytrin) 4 mg PO BEDTIME [facility] Last Admin: 11/18/16 20:49 Dose: 4 mg Tiotropium [place] (Spiriva Handihaler) 18 mcg INH DAILY [facility] Last Admin: 11/19/16 09:08 Dose: 1 inhalation Vit C/Vit E/Zinc/Copper/Lutein (Ocuvite Lutein) 1 each PO DAILY [facility] Last Admin: 11/19/16 09:07 Dose: 1 each Discontinued Medications Acetaminophen (Tylenol) 650 mg PO Q4H PRN PRN Reason: Pain (Mild 1-3)/fever Diphenhydramine HCl (Benadryl) 50 mg IM ONETIME ONE Stop: 11/19/16 12:56 Last Admin: 11/19/16 13:29 Dose: 50 mg Enoxaparin Sodium (Lovenox) 80 mg SUBCUT ONETIME ONE Stop: 11/19/16 04:45 Last Admin: 11/19/16 07:57 Dose: Not Given Enoxaparin Sodium (Lovenox) 70 mg SUBCUT ONETIME ONE Stop: 11/19/16 04:45 Last Admin: 11/19/16 05:24 Dose: 70 mg Furosemide (Lasix) 80 mg PO DAILY [facility] Furosemide (Lasix) 40 mg IVPUSH NOW ONE Stop: 11/18/16 17:40 Last Admin: 11/18/16 17:53 Dose: 40 mg Furosemide (Lasix) 60 mg IVPUSH NOW ONE Stop: 11/19/16 08:07 Last Admin: 11/19/16 08:36 Dose: 60 mg Furosemide (Lasix) 40 mg IVPUSH ONETIME ONE Stop: 11/19/16 16:01 Last Admin: 11/19/16 16:10 Dose: 40 mg Levofloxacin/Dextrose 500 mg/ (Premix) 100 mls @ 100 mls/hr IV Q24H [place] Last Admin: 11/18/16 16:40 Dose: 100 mls/hr Sodium Chloride (Normal Saline) 250 mls @ 500 mls/hr IV ONETIME ONE Stop: 11/19/16 13:29 Last Admin: 11/19/16 12:53 Dose: 500 mls/hr Iopamidol (Isovue-370 (76%)) 64 ml IV ONETIME ONE Stop: 11/19/16 12:47 Last Admin: 11/19/16 14:02 Dose: 64 ml Morphine Sulfate (Morphine) 1 mg IVPUSH Q2H PRN PRN Reason: Dyspnea Last Admin: 11/19/16 03:40 Dose: 1 mg Non-Formulary Medication (Compressor, For Nebulizer [Pulmo-Aide]) 1 each MC TID [place] Polyethylene Glycol (Miralax) 17 gm PO DAILY PRN PRN Reason: Constipation Polyethylene Glycol (Miralax) 17 gm PO DAILY PRN PRN Reason: Constipation Potassium Chloride (Klor-Con M20) 40 meq PO ONETIME ONE Stop: 11/18/16 15:01 Last Admin: 11/18/16 15:20 Dose: 40 meq - Exam General: Alert, Oriented, Cooperative HEENT: Pupils Equal Neck: Supple Lungs: Decreased Breath Sounds, Crackles, Other (Mild tachypnea) Cardiovascular: Regular Rhythm, No Murmurs, Tachycardia Extremities: Pedal Edema Skin: Warm, Dry, Intact Psy/Mental Status: Alert, Normal Affect, Normal Mood - Problem List & Annotations (1) Palliative care status SNOMED Code(s): 813235664 Code(s): Z51.5 - ENCOUNTER FOR PALLIATIVE CARE Status: Acute Current Visit: Yes (2) Anemia SNOMED Code(s): 010754352 Code(s): D64.9 - ANEMIA, UNSPECIFIED Status: Acute Current Visit: Yes Qualifiers: Anemia type: unspecified type Qualified Code(s): D64.9 - Anemia, unspecified (3) CHF (congestive heart failure) SNOMED Code(s): 93471989 Code(s): I50.9 - HEART FAILURE, UNSPECIFIED Status: Acute Current Visit: Yes Qualifiers: Congestive heart failure type: unspecified congestive heart failure type Congestive heart failure chronicity: acute on chronic Qualified Code(s): I50.9 - Heart failure, unspecified (4) Hypokalemia SNOMED Code(s): 30853837 Code(s): E87.6 - HYPOKALEMIA Status: Acute Current Visit: Yes (5) Pneumonia SNOMED Code(s): 374259718 Code(s): J18.9 - PNEUMONIA, UNSPECIFIED ORGANISM Status: Acute Current Visit: Yes Qualifiers: Pneumonia type: due to unspecified organism (6) COPD (chronic obstructive pulmonary disease) SNOMED Code(s): 64969709 Code(s): J44.9 - CHRONIC OBSTRUCTIVE PULMONARY DISEASE, UNSPECIFIED Status : Acute Current Visit: No (7) Type 2 diabetes mellitus SNOMED Code(s): 72504918 Code(s): E11.9 - TYPE 2 DIABETES MELLITUS WITHOUT COMPLICATIONS Status: Acute Current Visit: No (8) Chronic kidney disease, stage III (moderate) SNOMED Code(s): 386308617 Code(s): N18.3 - CHRONIC KIDNEY DISEASE, STAGE 3 (MODERATE) Status: Chronic Priority: Medium Current Visit: No Annotation/Comment:: Stable Cr 1.4-1.6. - Problem List Review Problem List Initiated/Reviewed/Updated: Yes - My Orders Last 24 Hours: My Active Orders 11/18/16 16:40 Sodium Chloride 0.9% [Normal Saline] 250 ml IV ASDIRECTED 11/18/16 17:39 Accu Check [Blood Glucose Check, Bedside] [RC] BIDMEALS SCD [Sequential Compression Device] [OM.PC] Routine 11/18/16 17:41 Urinary Catheter Assessment [RC] QSHIFT 11/18/16 17:42 Acetaminophen [Tylenol] 650 mg PO Q4H PRN Albuterol/Ipratropium [DuoNeb 3.0-0.5 MG/3 ML] 3 ml NEB Q4H PRN Bisacodyl [Dulcolax] 10 mg RECTAL DAILY PRN Magnesium Hydroxide [Milk of Magnesia] 30 ml PO DAILY PRN Polyethylene Glycol 3350 [MiraLAX] 17 gm PO DAILY PRN 11/18/16 17:45 Granados Catheter Insertion [Insert Urinary Catheter] [OM.PC] Q24H 11/18/16 21:00 Enoxaparin [Lovenox] 30 mg SUBCUT Q24H 11/19/16 08:15 methylPREDNISolone Sod Succ [Solu-MEDROL] 125 mg IVPUSH Q8H 11/19/16 09:00 Lactulose [Chronulac] 10 gm PO DAILY PRN Lutein/Min/Vit C/Vit E Acetate [Ocuvite Lutein] 1 each PO DAILY 11/19/16 Lunch Consistent Carbohydrate Diet [DIET] 11/20/16 00:00 Levofloxacin/Dextrose 5%-Water [Levaquin in D5W 750 MG/150 ML] 750 mg Premix Bag 1 bag IV Q24H - Plan Plan:: 1. Due to his high d-dimer I talk to radiology and they felt it was okay to do a CT of the chest with contrast even though his creatinine is 1.6. 2. Wean down O2 to keep sats greater than 80%. 3. I added on Solu-Medrol 125 mg every 8 hours. 4. IV Lasix. 5. Continue IV antibiotics.
--- NOTE | 2016-11-19 16:49 | PCM.SN ---
- Free Text/Narrative Note: CT report called by radiology reports pleural effusions that are large, pneumonia, CHF and severe COPD. No PE.
[2016-11-19] MEDS: Levofloxacin/Dextrose 5%-Water 500 MG in Premix Bag 1 BAG IV SCH (16:52)
[2016-11-19] MEDS: Enoxaparin 30 MG/0.3 ML Syringe SUBCUT SCH (20:41)
[2016-11-19] MEDS: Donepezil 5 MG Tab PO SCH (20:43)
[2016-11-19] MEDS: Simvastatin 10 MG Tab PO SCH (20:56)
[2016-11-20] MEDS: methylPREDNISolone Sodium Succinate 125 MG/2 ML SDV IVPUSH SCH ×3 (00:25→17:20)
[2016-11-20] MEDS: Albuterol/Ipratropium 3.0-0.5 MG/3 ML Neb Soln NEB PRN ×5 (01:59→23:23)
[2016-11-20] MEDS: Morphine 2 MG/ML Syringe IVPUSH PRN ×4 (05:08→23:25)
[2016-11-20] MEDS: Sodium Chloride 0.9% 10 ML Syringe FLUSH PRN ×4 (05:16→21:34)
--- NOTE | 2016-11-20 08:36 | PCM.PN ---
- General Info Date of Service: 11/20/16 Admission Dx/Problem (Free Text): Patient states is a little short of breath this morning. The nurses report he had one episode where he got short of breath and tachycardic. They gave him some morphine and a nebulizer treatment and he improved. He denies fevers, chills, chest pain. He states his leg swelling is much improved. - Patient Data Vitals - Most Recent: Last Vital Signs Temp 98 F 11/20/16 04:00 Pulse 126 H 11/20/16 04:00 Resp 26 H 11/20/16 04:00 BP 125/72 11/20/16 04:00 Pulse Ox 94 L 11/20/16 04:00 Weight - Most Recent: 167 lb 12.8 oz I&O - Last 24 Hours: Intake & Output 11/19/16 11/20/16 11/20/16 22:59 06:59 14:59 Intake Total 200 100 Output Total 1250 450 Balance -1050 -350 Lab Results Last 24 Hours: Laboratory Results - last 24 hr 11/19/16 11/19/16 11/20/16 Range/Units 11:32 17:26 06:20 Sodium 144 (135-145) mmol/L Potassium 3.1 L (3.5-5.3) mmol/L Chloride 107 (100-110) mmol/L Carbon Dioxide 27 (23-29) mmol/L BUN 28 H (8-23) mg/dL Creatinine 1.4 H (0.6-1.3) mg/dL Est Cr Clr Drug Dosing 39.83 mL/min Estimated GFR (MDRD) 48 L (>60) BUN/Creatinine Ratio 20.0 (9-20) Glucose 210 H (80-116) mg/dL POC Glucose 199 H D 170 H (80-116) mg/dL Calcium 8.9 (8.6-10.2) mg/dL 11/20/16 Range/Units 06:37 Sodium (135-145) mmol/L Potassium (3.5-5.3) mmol/L Chloride (100-110) mmol/L Carbon Dioxide (23-29) mmol/L BUN (8-23) mg/dL Creatinine (0.6-1.3) mg/dL Est Cr Clr Drug Dosing mL/min Estimated GFR (MDRD) (>60) BUN/Creatinine Ratio (9-20) Glucose (80-116) mg/dL POC Glucose 195 H (80-116) mg/dL Calcium (8.6-10.2) mg/dL Med Orders - Current: Current Medications Acetaminophen (Tylenol) 650 mg PO Q4H PRN PRN Reason: Pain/Fever Albuterol (Ventolin Hfa) 0 gm INH Q4H PRN PRN Reason: Shortness of Breath Last Admin: 11/18/16 17:50 Dose: 2 inhalation Albuterol (Proventil Neb Soln) 2.5 mg NEB Q4H PRN PRN Reason: SOB/WHEEZING/COUGH Last Admin: 11/19/16 11:01 Dose: 2.5 mg Albuterol/Ipratropium (Duoneb 3.0-0.5 Mg/3 Ml) 3 ml NEB Q4H PRN PRN Reason: Shortness of Breath Last Admin: 11/20/16 05:14 Dose: 3 ml Aspirin (Aspirin) 81 mg PO DAILY [facility] Last Admin: 11/19/16 09:05 Dose: 81 mg Bisacodyl (Dulcolax) 10 mg RECTAL DAILY PRN PRN Reason: Constipation Carvedilol (Coreg) 3.125 mg PO DAILY [facility] Last Admin: 11/19/16 09:05 Dose: 3.125 mg Clopidogrel Bisulfate (Plavix) 75 mg PO DAILY [facility] Donepezil HCl (Aricept) 5 mg PO BEDTIME [facility] Last Admin: 11/19/16 20:43 Dose: 5 mg Enoxaparin Sodium (Lovenox) 30 mg SUBCUT Q24H [facility] Last Admin: 11/19/16 20:41 Dose: 30 mg Finasteride (Proscar) 5 mg PO DAILY [facility] Last Admin: 11/19/16 09:07 Dose: 5 mg Furosemide (Lasix) 40 mg PO BID [facility] Glipizide (Glucotrol) 2.5 mg PO DAILY [facility] Last Admin: 11/19/16 09:06 Dose: 2.5 mg Sodium Chloride (Normal Saline) 250 mls @ 100 mls/hr IV ASDIRECTED [facility] Last Admin: 11/18/16 16:40 Dose: 100 mls/hr Levofloxacin/Dextrose 750 mg/ (Premix) 150 mls @ 100 mls/hr IV Q24H [facility] Last Admin: 11/20/16 00:00 Dose: 100 mls/hr Isosorbide Mononitrate (Imdur) 30 mg PO DAILY [facility] Last Admin: 11/19/16 09:06 Dose: 30 mg Lactulose (Chronulac) 10 gm PO DAILY PRN PRN Reason: CONSTIPATION Lisinopril (Prinivil) 2.5 mg PO DAILY [facility] Last Admin: 11/19/16 09:07 Dose: 2.5 mg Magnesium Hydroxide (Milk Of Magnesia) 30 ml PO DAILY PRN PRN Reason: Constipation Methylprednisolone Sodium Succinate (Solu-Medrol) 125 mg IVPUSH DAILY [facility] Morphine Sulfate (Morphine) 1 mg IVPUSH Q1H PRN PRN Reason: Dyspnea Last Admin: 11/20/16 05:08 Dose: 1 mg Ondansetron HCl (Zofran Odt) 4 mg PO Q6H PRN PRN Reason: nausea, able to take PO Polyethylene Glycol (Miralax) 17 gm PO DAILY PRN PRN Reason: Constipation Potassium Chloride (Klor-Con M20) 40 meq PO TID [facility] Simvastatin (Zocor) 10 mg PO BEDTIME [facility] Last Admin: 11/19/16 20:56 Dose: 10 mg Sodium Chloride (Saline Flush) 10 ml FLUSH ASDIRECTED PRN PRN Reason: Keep Vein Open Last Admin: 11/20/16 05:16 Dose: 10 ml Spironolactone (Aldactone) 25 mg PO DAILY [facility] Last Admin: 11/19/16 09:05 Dose: 25 mg Terazosin HCl (Hytrin) 4 mg PO BEDTIME [facility] Last Admin: 11/19/16 20:42 Dose: 4 mg Tiotropium Perry (Spiriva Handihaler) 18 mcg INH DAILY [facility] Last Admin: 11/19/16 09:08 Dose: 1 inhalation Vit C/Vit E/Zinc/Copper/Lutein (Ocuvite Lutein) 1 each PO DAILY [facility] Last Admin: 11/19/16 09:07 Dose: 1 each Discontinued Medications Acetaminophen (Tylenol) 650 mg PO Q4H PRN PRN Reason: Pain (Mild 1-3)/fever Diphenhydramine HCl (Benadryl) 50 mg IM ONETIME ONE Stop: 11/19/16 12:56 Last Admin: 11/19/16 13:29 Dose: 50 mg Enoxaparin Sodium (Lovenox) 80 mg SUBCUT ONETIME ONE Stop: 11/19/16 04:45 Last Admin: 11/19/16 07:57 Dose: Not Given Enoxaparin Sodium (Lovenox) 70 mg SUBCUT ONETIME ONE Stop: 11/19/16 04:45 Last Admin: 11/19/16 05:24 Dose: 70 mg Furosemide (Lasix) 80 mg PO DAILY [facility] Furosemide (Lasix) 40 mg IVPUSH NOW ONE Stop: 11/18/16 17:40 Last Admin: 11/18/16 17:53 Dose: 40 mg Furosemide (Lasix) 60 mg IVPUSH NOW ONE Stop: 11/19/16 08:07 Last Admin: 11/19/16 08:36 Dose: 60 mg Furosemide (Lasix) 40 mg IVPUSH ONETIME ONE Stop: 11/19/16 16:01 Last Admin: 11/19/16 16:10 Dose: 40 mg Levofloxacin/Dextrose 500 mg/ (Premix) 100 mls @ 100 mls/hr IV Q24H [facility] Last Admin: 11/19/16 16:52 Dose: Not Given Sodium Chloride (Normal Saline) 250 mls @ 500 mls/hr IV ONETIME ONE Stop: 11/19/16 13:29 Last Admin: 11/19/16 12:53 Dose: 500 mls/hr Iopamidol (Isovue-370 (76%)) 64 ml IV ONETIME ONE Stop: 11/19/16 12:47 Last Admin: 11/19/16 14:02 Dose: 64 ml Methylprednisolone Sodium Succinate (Solu-Medrol) 125 mg IVPUSH Q8H [facility] Last Admin: 11/20/16 00:25 Dose: 125 mg Morphine Sulfate (Morphine) 1 mg IVPUSH Q2H PRN PRN Reason: Dyspnea Last Admin: 11/19/16 03:40 Dose: 1 mg Non-Formulary Medication (Compressor, For Nebulizer [Pulmo-Aide]) 1 each MC TID [facility] Polyethylene Glycol (Miralax) 17 gm PO DAILY PRN PRN Reason: Constipation Polyethylene Glycol (Miralax) 17 gm PO DAILY PRN PRN Reason: Constipation Potassium Chloride (Klor-Con M20) 40 meq PO ONETIME ONE Stop: 11/18/16 15:01 Last Admin: 11/18/16 15:20 Dose: 40 meq Potassium Chloride (Klor-Con M20) 20 meq PO TID [facility] Last Admin: 11/19/16 20:43 Dose: 20 meq - Exam General: Alert, Oriented Lungs: Normal Respiratory Effort, Crackles, Rales Cardiovascular: Regular Rate, Regular Rhythm, No Murmurs Extremities: No Pedal Edema - Problem List & Annotations (1) Palliative care status SNOMED Code(s): 088299572 Code(s): Z51.5 - ENCOUNTER FOR PALLIATIVE CARE Status: Acute Current Visit: Yes (2) Anemia SNOMED Code(s): 642929347 Code(s): D64.9 - ANEMIA, UNSPECIFIED Status: Acute Current Visit: No Qualifiers: Anemia type: unspecified type Qualified Code(s): D64.9 - Anemia, unspecified (3) CHF (congestive heart failure) SNOMED Code(s): 96985164 Code(s): I50.9 - HEART FAILURE, UNSPECIFIED Status: Acute Current Visit: Yes Qualifiers: Congestive heart failure type: unspecified congestive heart failure type Congestive heart failure chronicity: acute on chronic Qualified Code(s): I50.9 - Heart failure, unspecified (4) Hypokalemia SNOMED Code(s): 89977074 Code(s): E87.6 - HYPOKALEMIA Status: Acute Current Visit: Yes (5) Pneumonia SNOMED Code(s): 042936344 Code(s): J18.9 - PNEUMONIA, UNSPECIFIED ORGANISM Status: Acute Current Visit: Yes Qualifiers: Pneumonia type: due to unspecified organism (6) COPD (chronic obstructive pulmonary disease) SNOMED Code(s): 14382678 Code(s): J44.9 - CHRONIC OBSTRUCTIVE PULMONARY DISEASE, UNSPECIFIED Status : Acute Current Visit: No (7) Type 2 diabetes mellitus SNOMED Code(s): 33059177 Code(s): E11.9 - TYPE 2 DIABETES MELLITUS WITHOUT COMPLICATIONS Status: Acute Current Visit: No (8) Chronic kidney disease, stage III (moderate) SNOMED Code(s): 579924882 Code(s): N18.3 - CHRONIC KIDNEY DISEASE, STAGE 3 (MODERATE) Status: Chronic Priority: Medium Current Visit: No Annotation/Comment:: Stable Cr 1.4-1.6. (9) Pleural effusion SNOMED Code(s): 43280025 Code(s): J90 - PLEURAL EFFUSION, NOT ELSEWHERE CLASSIFIED Status: Acute Current Visit: Yes - Problem List Review Problem List Initiated/Reviewed/Updated: Yes - My Orders Last 24 Hours: My Active Orders 11/19/16 09:00 Lactulose [Chronulac] 10 gm PO DAILY PRN Lutein/Min/Vit C/Vit E Acetate [Ocuvite Lutein] 1 each PO DAILY 11/19/16 Lunch Consistent Carbohydrate Diet [DIET] 11/20/16 00:00 Levofloxacin/Dextrose 5%-Water [Levaquin in D5W 750 MG/150 ML] 750 mg Premix Bag 1 bag IV Q24H 11/20/16 08:27 Notify Provider Consults [RC] ASDIRECTED Consult to Physician [CONS] Routine 11/20/16 08:30 DC Granados Catheter [Urinary Catheter Removal] [RC] Per Unit Routine 11/20/16 08:31 Potassium Chloride [Klor-Con M20] 40 meq PO TID 11/20/16 09:00 Furosemide [Lasix] 40 mg PO BID methylPREDNISolone Sod Succ [Solu-MEDROL] 125 mg IVPUSH DAILY 11/21/16 06:00 BASIC METABOLIC PANEL,BMP [CHEM] AM 11/21/16 08:45 B-TYPE NATRIURETIC PEPTIDE,BNP [CHEM] AM - Plan Plan:: 1. DC Granados catheter. 2. Solu-Medrol 125 mg IV once a day. 3. Consult Dr. León for possible thoracentesis regarding pleural effusions. 4. Lasix 40 mg by mouth twice a day. 5. Continue to watch daily weights and I's and O's. 6. Continue antibiotics. 7. Check BNP, BMP in a.m. 8. Increased potassium 20 mEq 3 times a day to 40 mEq 3 times a day to increase potassium. 9. CT scan ruled out pulmonary most. Stated large pleural effusion, CHF, pneumonia, severe COPD.
[2016-11-20] MEDS: Spironolactone 25 MG Tab PO SCH (09:01)
[2016-11-20] MEDS: Finasteride 5 MG Tab PO SCH (09:01)
[2016-11-20] MEDS: glipiZIDE 5 MG Tab PO SCH (09:01)
[2016-11-20] MEDS: Carvedilol 3.125 MG Tab PO SCH (09:01)
[2016-11-20] MEDS: Lutein/Minerals/Vitamin C/Vitamin E Acetate Cap PO SCH (09:02)
[2016-11-20] MEDS: Lisinopril 2.5 MG Tab PO SCH (09:02)
[2016-11-20] MEDS: Isosorbide Mononitrate 30 MG Tab.ER PO SCH (09:02)
[2016-11-20] MEDS: Potassium Chloride 20 MEQ Tab.ER PO SCH ×4 (09:02→20:22)
[2016-11-20] MEDS: Aspirin 81 MG Tab.Chew PO SCH (09:02)
[2016-11-20] MEDS: Tiotropium Inhaler 18 MCG Inhalation Powder Cap Kit of 5 INH SCH (09:03)
--- NOTE | 2016-11-20 09:03 | PCM.CONS ---
H&P History of Present Illness - General Date of Service: 11/20/16 Admit Problem/Dx: Patient states is a little short of breath this morning. The nurses report he had one episode where he got short of breath and tachycardic. They gave him some morphine and a nebulizer treatment and he improved. He denies fevers, chills, chest pain. He states his leg swelling is much improved. Source of Information: Old Records History Limitations: Reports: Other (poor historian ) - History of Present Illness Initial Comments - Free Text/Narative: 85 yo wm who was admitted with a one wk hx of dyspnea and cough. Apparently was seen in the clinic earlier this week and dx with pneumonia and a worsening of his CHF. Antibiotic and Lasix did not help his sx and he presented with a worsening of his sx. A CT/angio was obtained and he was noted to have bilateral plueral effusions right greater than left. He reports that he has issue with breathing for a while. Does note some abd distention and pain as well. - Related Data Allergies/Adverse Reactions: Allergies Allergy/AdvReac Type Severity Reaction Status Date / Time cephalexin monohydrate Allergy Hives Verified 11/18/16 17:02 [From Keflex] iodine Allergy Hives Verified 11/18/16 17:02 Home Medications: Home Meds Clopidogrel [Plavix] 75 mg PO DAILY 12/07/12 [History] Finasteride [Proscar] 5 mg PO DAILY 12/07/12 [History] Isosorbide Mononitrate [Imdur] 30 mg PO DAILY 12/07/12 [History] Terazosin [Hytrin] 4 mg PO BEDTIME 12/07/12 [History] Lutein/Minerals/Vit A,C & E [Ocuvite] 1 tab PO DAILY 03/02/15 [History] Albuterol [Proventil HFA] 2 puff INH Q4H PRN 03/11/16 [History] Tiotropium [Spiriva Handihaler] 1 puff INH DAILY 03/11/16 [History] glipiZIDE [Glucotrol] 2.5 mg PO DAILY 03/11/16 [History] Albuterol [Proventil Neb Soln] 2.5 mg NEB Q4H PRN 04/23/16 [History] Aspirin 81 mg PO DAILY 04/23/16 [History] Carvedilol 3.125 mg PO DAILY 04/23/16 [History] Compressor, For Nebulizer [Pulmo-Aide] 1 each MC TID 04/23/16 [History] Donepezil [Aricept] 5 mg PO BEDTIME 04/23/16 [History] Furosemide [Lasix] 80 mg PO DAILY 04/23/16 [History] Lisinopril 2.5 mg PO DAILY 04/23/16 [History] Polyethylene Glycol 3350 [MiraLAX] 17 gm PO DAILY PRN 04/23/16 [History] Simvastatin [Zocor] 10 mg PO BEDTIME 04/23/16 [History] Acetaminophen [Tylenol] 650 mg PO Q4H PRN 11/18/16 [History] Albuterol/Ipratropium [DuoNeb 3.0-0.5 MG/3 ML] 3 ml IH Q4H PRN 11/18/16 [History ] Bisacodyl 10 mg RECTAL DAILY PRN 11/18/16 [History] Lactulose 10 gm PO DAILY PRN 11/18/16 [History] Magnesium Hydroxide [Milk of Magnesia] 30 ml PO DAILY PRN 11/18/16 [History] Polyethylene Glycol 3350 [MiraLAX] 17 gm PO DAILY PRN 11/18/16 [History] Past Medical History HEENT History: Reports: Hard of Hearing, Impaired Vision Cardiovascular History: Reports: Bypass, Heart Failure Other Cardiovascular History: CABG Respiratory History: Reports: COPD, Intubation, Previous, SOB Other Respiratory History: Respiratory failure; Aspiration pneumonia Gastrointestinal History: Reports: Bowel Obstruction Other Gastrointestinal History: bowel resection; bowel obstruction Genitourinary History: Reports: Prostate Disorder Other Genitourinary History: Incomplete bladder emptying Musculoskeletal History: Reports: Arthritis, Fracture Neurological History: Reports: CVA Psychiatric History: Reports: Other (See Below) Other Psychiatric History: forgetfullness Endocrine/Metabolic History: Reports: Diabetes, Type II - Infectious Disease History Infectious Disease History: Reports: Chicken Pox, Hepatitis non A,B,C, Measles, Mononucleosis, Mumps, Pertussis (Whooping Cough), Shingles - Past Surgical History HEENT Surgical History: Reports: Cataract Surgery, Tonsillectomy Cardiovascular Surgical History: Reports: Coronary Artery Bypass, Coronary Artery Stent GI Surgical History: Reports: None, Hernia, Abdominal Musculoskeletal Surgical History: Reports: Hip Replacement, Knee Replacement Social & Family History - Family History Family Medical History: Noncontributory Other Cardiac Family History: maternal grandpa had a bad heart. Other Respiratory Family Hisory: pat is unsure OBGYN: Reports: Musculoskeletal: Reports: Arthritis Neurological: Reports: Alzheimers Disease, Dementia Hematologic: Reports: None Other Oncologic Family History: yes but he doese not remember which kinds. - Tobacco Use Smoking Status *Q: Former Smoker Years of Tobacco use: 50 Used Tobacco, but Quit: Yes Month Tobacco Last Used: Quit 6 years ago Second Hand Smoke Exposure: No - Caffeine Use Caffeine Use: Reports: Coffee - Alcohol Use Days Per Week of Alcohol Use: 0 - Recreational Drug Use Recreational Drug Use: No Drug Use in Last 12 Months: No H&P Review of Systems - Review of Systems: Review Of Systems: ROS reveals no pertinent complaints other than HPI. Free Text/Narrative: poor historian. Exam - Exam Exam: See Below - Vital Signs Vital Signs: Last Vital Signs Temp 36.6 C 11/20/16 04:00 Pulse 126 H 11/20/16 04:00 Resp 26 H 11/20/16 04:00 BP 125/72 11/20/16 04:00 Pulse Ox 94 L 11/20/16 04:00 Weight: 76.113 kg - Exam General: Alert, Cooperative Lungs: Decreased Breath Sounds (at the base on the right ), Other (some dullness to percussion on the lower lung fernandez bilaterally. ) Cardiovascular: Irregular Rhythm GI/Abdominal Exam: Normal Bowel Sounds, Distended (tympanic ), Tender (mild tenderness in the epigastrium. ) - Patient Data Lab Results Last 24 hrs: Laboratory Results - last 24 hr 11/19/16 11/19/16 11/20/16 Range/Units 11:32 17:26 06:20 Sodium 144 (135-145) mmol/L Potassium 3.1 L (3.5-5.3) mmol/L Chloride 107 (100-110) mmol/L Carbon Dioxide 27 (23-29) mmol/L BUN 28 H (8-23) mg/dL Creatinine 1.4 H (0.6-1.3) mg/dL Est Cr Clr Drug Dosing 39.83 mL/min Estimated GFR (MDRD) 48 L (>60) BUN/Creatinine Ratio 20.0 (9-20) Glucose 210 H (80-116) mg/dL POC Glucose 199 H D 170 H (80-116) mg/dL Calcium 8.9 (8.6-10.2) mg/dL 11/20/16 Range/Units 06:37 Sodium (135-145) mmol/L Potassium (3.5-5.3) mmol/L Chloride (100-110) mmol/L Carbon Dioxide (23-29) mmol/L BUN (8-23) mg/dL Creatinine (0.6-1.3) mg/dL Est Cr Clr Drug Dosing mL/min Estimated GFR (MDRD) (>60) BUN/Creatinine Ratio (9-20) Glucose (80-116) mg/dL POC Glucose 195 H (80-116) mg/dL Calcium (8.6-10.2) mg/dL Result Diagrams: 11/19/16 04:15 11/20/16 06:20 Imaging Impressions Last 24 hrs: reports reviewed. CXR not really demonstrate a marked effusion. Turner Machine Operator film on the CT scan, demonstrates marked distention of the intestine. No commented on in the report. Consult PN Assessment/Plan Procedures: Procedures AIRWAY INHALATION TREATMENT (03/05/16) ASSAY OF AMYLASE (03/05/16) ASSAY OF CK (CPK) (03/05/16) ASSAY OF MAGNESIUM (03/05/16) ASSAY OF NATRIURETIC PEPTIDE (04/09/16) ASSAY OF PHOSPHORUS (03/05/16) ASSAY OF TROPONIN QUANT (04/09/16) BLOOD CULTURE FOR BACTERIA (03/05/16) BLOOD GASES ANY COMBINATION (04/09/16) CHEST X-RAY 1 VIEW FRONTAL (04/09/16) CHEST X-RAY 2VW FRONTAL&LATL (05/14/16) CINE/VID X-RAY THROAT/ESOPH (05/10/16) COMPLETE CBC AUTOMATED (03/05/16) COMPLETE CBC W/AUTO DIFF WBC (05/14/16) COMPREHEN METABOLIC PANEL (03/05/16) CREATINE MB FRACTION (03/05/16) CRITICAL CARE ADDL 30 MIN (04/09/16) CRITICAL CARE FIRST HOUR (04/09/16) CULTURE AEROBIC IDENTIFY (05/14/16) CULTURE OTHR SPECIMN AEROBIC (05/14/16) ELECTROCARDIOGRAM TRACING (04/09/16) EMERGENCY DEPT VISIT (03/05/16) EMERGENCY DEPT VISIT (03/02/15) EMERGENCY DEPT VISIT (03/02/15) EVALUATE PT USE OF INHALER (03/05/16) FIBRIN DEGRADATION QUANT (03/05/16) GAIT TRAINING THERAPY (03/05/16) GLUCOSE BLOOD TEST (03/05/16) GLYCOSYLATED HEMOGLOBIN TEST (08/19/16) HYDRATE IV INFUSION ADD-ON (04/09/16) INFLUENZA ASSAY W/OPTIC (05/15/16) INSERT EMERGENCY AIRWAY (04/09/16) INSERT TEMP BLADDER CATH (04/09/16) KNEE ARTHROSCOPY/SURGERY (12/07/12) LIPID PANEL (05/17/16) METABOLIC PANEL TOTAL CA (08/19/16) MICROBE SUSCEPTIBLE NADIR (10/31/16) MRI JNT OF LWR EXTRE W/O DYE (11/27/12) NON-ROUTINE BL DRAW 3/> YRS (04/09/16) OCCULT BLD FECES 1-3 TESTS (03/05/16) OCCULT BLOOD FECES (03/05/16) PROTHROMBIN TIME (03/05/16) PT EVALUATION (03/05/16) ROUTINE VENIPUNCTURE (08/19/16) SMEAR GRAM STAIN (05/14/16) THER/PROPH/DIAG INJ IV PUSH (04/09/16) THERAPEUTIC ACTIVITIES (03/05/16) THROMBOPLASTIN TIME PARTIAL (03/05/16) TX/PRO/DX INJ NEW DRUG ADDON (04/09/16) TX/PRO/DX INJ SAME DRUG BOAT HAND (04/09/16) URINALYSIS AUTO W/SCOPE (10/31/16) URINE BACTERIA CULTURE (10/31/16) URINE CULTURE/COLONY COUNT (10/31/16) VITAL CAPACITY TEST (03/05/16) WITHDRAWAL OF ARTERIAL BLOOD (04/09/16) X-RAY EXAM OF ABDOMEN (03/05/16) X-RAY EXAM OF KNEE 3 (11/24/12) X-RAY EXAM OF PELVIS (11/24/12) X-RAY EXAM SERIES ABDOMEN (03/05/16) (1) Abdominal distension (gaseous) SNOMED Code(s): 761647468 Code(s): R14.0 - ABDOMINAL DISTENSION (GASEOUS) Current Visit: Yes (2) CHF (congestive heart failure) SNOMED Code(s): 68706539 Code(s): I50.9 - HEART FAILURE, UNSPECIFIED Current Visit: Yes Qualifiers: Congestive heart failure type: unspecified congestive heart failure type Congestive heart failure chronicity: acute on chronic Qualified Code(s): I50.9 - Heart failure, unspecified (3) Pleural effusion SNOMED Code(s): 59951995 Code(s): J90 - PLEURAL EFFUSION, NOT ELSEWHERE CLASSIFIED Current Visit: Yes (4) Pneumonia SNOMED Code(s): 067459855 Code(s): J18.9 - PNEUMONIA, UNSPECIFIED ORGANISM Current Visit: Yes Qualifiers: Pneumonia type: due to unspecified organism Problem List Initiated/Reviewed/Updated: Yes Plan: at this point do not feel an thoracentesis would help, based on my clinical exam of the pt. It does appear that his abd distension is a bigger factor at the point. will order a KUB and on the basis of the results will make recommendation.
[2016-11-20] MEDS: Clopidogrel 75 MG Tab PO SCH (09:11)
[2016-11-20] MEDS: Furosemide 40 MG Tab PO SCH ×2 (10:14→14:34)
--- NOTE | 2016-11-20 11:23 | PCM.SN ---
- Free Text/Narrative Note: KUB demonstrates marked gaseous distention. this is most likely from his Bipap and air swallowing. would try medical management first if no successful will need an ngt placed.
[2016-11-20] MEDS: Metoclopramide 10 MG/2 ML SDV IV SCH ×3 (12:23→23:32)
[2016-11-20] MEDS: Albuterol 0.083% 2.5 MG/3 ML Neb Soln NEB PRN ×2 (12:49→21:01)
[2016-11-20] MEDS: Albuterol 8 GM Inhaler INH PRN (13:17)
--- NOTE | 2016-11-20 15:48 | CR ---
INDICATION: Abdominal distention. ABDOMEN: Two portable supine images of the abdomen were obtained 11/20/2016 and compared with 03/17/2016, revealing relatively prominent distention of the large bowel, especially what appears to be redundant sigmoid colon, raising question of a sigmoid volvulus. This should be correlated clinically. This process would appear to be either partial or early, as there is gas in the rectosigmoid and rectum. Free air cannot be excluded. Pleuroparenchymal changes are noted at the right lung base. 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 Other lesion at the sigmoid colon would also be a consideration. MTDD
[2016-11-20] MEDS: Donepezil 5 MG Tab PO SCH (20:21)
[2016-11-20] MEDS: Enoxaparin 30 MG/0.3 ML Syringe SUBCUT SCH (20:23)
[2016-11-20] MEDS: Simvastatin 10 MG Tab PO SCH (20:23)
[2016-11-20] MEDS: Levofloxacin/Dextrose 5%-Water 750 MG in Premix Bag 1 BAG IV SCH ×3 (23:35)
[2016-11-21] MEDS: Morphine 2 MG/ML Syringe IVPUSH PRN ×3 (01:36→06:46)
[2016-11-21] MEDS: Sodium Chloride 0.9% 10 ML Syringe FLUSH PRN ×3 (01:38→17:08)
[2016-11-21] MEDS: Albuterol/Ipratropium 3.0-0.5 MG/3 ML Neb Soln NEB PRN ×4 (03:16→21:31)
[2016-11-21] MEDS ORDERED: LORazepam 0.5 MG Tab PO ONE (03:46)
[2016-11-21] MEDS: Metoclopramide 10 MG/2 ML SDV IV SCH ×4 (04:55→23:31)
[2016-11-21] MEDS: Clopidogrel 75 MG Tab PO SCH (09:36)
[2016-11-21] MEDS: methylPREDNISolone Sodium Succinate 125 MG/2 ML SDV IVPUSH SCH (09:36)
[2016-11-21] MEDS: Lutein/Minerals/Vitamin C/Vitamin E Acetate Cap PO SCH (09:36)
[2016-11-21] MEDS: Lisinopril 2.5 MG Tab PO SCH (09:36)
[2016-11-21] MEDS: Potassium Chloride 20 MEQ Tab.ER PO SCH ×3 (09:36→20:16)
[2016-11-21] MEDS: Finasteride 5 MG Tab PO SCH (09:36)
[2016-11-21] MEDS: Isosorbide Mononitrate 30 MG Tab.ER PO SCH (09:37)
[2016-11-21] MEDS: Carvedilol 3.125 MG Tab PO SCH (09:37)
[2016-11-21] MEDS: glipiZIDE 5 MG Tab PO SCH (09:37)
[2016-11-21] MEDS: Furosemide 40 MG Tab PO SCH ×2 (09:37→13:58)
[2016-11-21] MEDS: Spironolactone 25 MG Tab PO SCH (09:38)
[2016-11-21] MEDS: Tiotropium Inhaler 18 MCG Inhalation Powder Cap Kit of 5 INH SCH (09:38)
[2016-11-21] MEDS: Aspirin 81 MG Tab.Chew PO SCH (09:38)
[2016-11-21] MEDS ORDERED: hydrOXYzine HCl 25 MG Tab PO PRN (09:48)
--- NOTE | 2016-11-21 09:48 | PCM.PN ---
- General Info Date of Service: 11/21/16 Subjective Update: Patient states he has a cough. Denies shortness of breath, leg swelling, chest pain, fevers or chills. - Patient Data Vitals - Most Recent: Last Vital Signs Temp 95.7 F 11/21/16 03:10 Pulse 77 11/21/16 09:37 Resp 20 11/21/16 03:10 BP 107/65 11/21/16 09:37 Pulse Ox 93 L 11/21/16 07:15 Weight - Most Recent: 168 lb 6.4 oz I&O - Last 24 Hours: Intake & Output 11/20/16 11/21/16 11/21/16 22:59 06:59 14:59 Intake Total 50 Output Total 100 Balance 50 -100 Lab Results Last 24 Hours: Laboratory Results - last 24 hr 11/20/16 11/21/16 11/21/16 Range/Units 16:47 05:10 05:10 Sodium 142 (135-145) mmol/L Potassium 4.4 D (3.5-5.3) mmol/L Chloride 106 (100-110) mmol/L Carbon Dioxide 29 (23-29) mmol/L BUN 35 H (8-23) mg/dL Creatinine 1.6 H (0.6-1.3) mg/dL Est Cr Clr Drug Dosing 34.85 mL/min Estimated GFR (MDRD) 41 L (>60) BUN/Creatinine Ratio 21.9 H (9-20) Glucose 209 H (80-116) mg/dL POC Glucose 240 H (80-116) mg/dL Calcium 9.2 (8.6-10.2) mg/dL B-Natriuretic Peptide 1230 H* (0-100) pg/mL 11/21/16 Range/Units 05:10 Sodium (135-145) mmol/L Potassium (3.5-5.3) mmol/L Chloride (100-110) mmol/L Carbon Dioxide (23-29) mmol/L BUN (8-23) mg/dL Creatinine (0.6-1.3) mg/dL Est Cr Clr Drug Dosing mL/min Estimated GFR (MDRD) (>60) BUN/Creatinine Ratio (9-20) Glucose (80-116) mg/dL POC Glucose 191 H (80-116) mg/dL Calcium (8.6-10.2) mg/dL B-Natriuretic Peptide (0-100) pg/mL Med Orders - Current: Current Medications Acetaminophen (Tylenol) 650 mg PO Q4H PRN PRN Reason: Pain/Fever Albuterol (Ventolin Hfa) 0 gm INH Q4H PRN PRN Reason: Shortness of Breath Last Admin: 11/20/16 13:17 Dose: 2 inhalation Albuterol (Proventil Neb Soln) 2.5 mg NEB Q4H PRN PRN Reason: SOB/WHEEZING/COUGH Last Admin: 11/20/16 21:01 Dose: 2.5 mg Albuterol/Ipratropium (Duoneb 3.0-0.5 Mg/3 Ml) 3 ml NEB Q4H PRN PRN Reason: Shortness of Breath Last Admin: 11/21/16 07:12 Dose: 3 ml Aspirin (Aspirin) 81 mg PO DAILY [facility] Last Admin: 11/21/16 09:38 Dose: 81 mg Bisacodyl (Dulcolax) 10 mg RECTAL DAILY PRN PRN Reason: Constipation Last Admin: 11/20/16 11:19 Dose: 10 mg Carvedilol (Coreg) 3.125 mg PO DAILY [facility] Last Admin: 11/21/16 09:37 Dose: 3.125 mg Clopidogrel Bisulfate (Plavix) 75 mg PO DAILY [facility] Last Admin: 11/21/16 09:36 Dose: 75 mg Donepezil HCl (Aricept) 5 mg PO BEDTIME [facility] Last Admin: 11/20/16 20:21 Dose: 5 mg Enoxaparin Sodium (Lovenox) 30 mg SUBCUT Q24H [facility] Last Admin: 11/20/16 20:23 Dose: 30 mg Finasteride (Proscar) 5 mg PO DAILY [facility] Last Admin: 11/21/16 09:36 Dose: 5 mg Glipizide (Glucotrol) 2.5 mg PO DAILY [facility] Last Admin: 11/21/16 09:37 Dose: 2.5 mg Sodium Chloride (Normal Saline) 250 mls @ 100 mls/hr IV ASDIRECTED [facility] Last Admin: 11/18/16 16:40 Dose: 100 mls/hr Levofloxacin/Dextrose 750 mg/ (Premix) 150 mls @ 100 mls/hr IV Q24H [facility] Last Admin: 11/20/16 23:35 Dose: 100 mls/hr Isosorbide Mononitrate (Imdur) 30 mg PO DAILY [facility] Last Admin: 11/21/16 09:37 Dose: 30 mg Lactulose (Chronulac) 10 gm PO DAILY PRN PRN Reason: CONSTIPATION Lisinopril (Prinivil) 2.5 mg PO DAILY [facility] Last Admin: 11/21/16 09:36 Dose: 2.5 mg Magnesium Hydroxide (Milk Of Magnesia) 30 ml PO DAILY PRN PRN Reason: Constipation Last Admin: 11/20/16 10:11 Dose: 30 ml Metoclopramide HCl (Reglan) 5 mg IV Q6H [facility] Last Admin: 11/21/16 04:55 Dose: 5 mg Ondansetron HCl (Zofran Odt) 4 mg PO Q6H PRN PRN Reason: nausea, able to take PO Polyethylene Glycol (Miralax) 17 gm PO DAILY PRN PRN Reason: Constipation Simvastatin (Zocor) 10 mg PO BEDTIME [facility] Last Admin: 11/20/16 20:23 Dose: 10 mg Sodium Chloride (Saline Flush) 10 ml FLUSH ASDIRECTED PRN PRN Reason: Keep Vein Open Last Admin: 11/21/16 04:56 Dose: 10 ml Spironolactone (Aldactone) 25 mg PO DAILY [facility] Last Admin: 11/21/16 09:38 Dose: 25 mg Terazosin HCl (Hytrin) 4 mg PO BEDTIME [facility] Last Admin: 11/20/16 20:22 Dose: 4 mg Tiotropium [place] (Spiriva Handihaler) 18 mcg INH DAILY [facility] Last Admin: 11/21/16 09:38 Dose: 1 inhalation Vit C/Vit E/Zinc/Copper/Lutein (Ocuvite Lutein) 1 each PO DAILY [facility] Last Admin: 11/21/16 09:36 Dose: 1 each Discontinued Medications Acetaminophen (Tylenol) 650 mg PO Q4H PRN PRN Reason: Pain (Mild 1-3)/fever Diphenhydramine HCl (Benadryl) 50 mg IM ONETIME ONE Stop: 11/19/16 12:56 Last Admin: 11/19/16 13:29 Dose: 50 mg Enoxaparin Sodium (Lovenox) 80 mg SUBCUT ONETIME ONE Stop: 11/19/16 04:45 Last Admin: 11/19/16 07:57 Dose: Not Given Enoxaparin Sodium (Lovenox) 70 mg SUBCUT ONETIME ONE Stop: 11/19/16 04:45 Last Admin: 11/19/16 05:24 Dose: 70 mg Furosemide (Lasix) 80 mg PO DAILY [place] Furosemide (Lasix) 40 mg IVPUSH NOW ONE Stop: 11/18/16 17:40 Last Admin: 11/18/16 17:53 Dose: 40 mg Furosemide (Lasix) 60 mg IVPUSH NOW ONE Stop: 11/19/16 08:07 Last Admin: 11/19/16 08:36 Dose: 60 mg Furosemide (Lasix) 40 mg IVPUSH ONETIME ONE Stop: 11/19/16 16:01 Last Admin: 11/19/16 16:10 Dose: 40 mg Furosemide (Lasix) 40 mg PO BIDDIURETIC [place] Last Admin: 11/21/16 09:37 Dose: 40 mg Levofloxacin/Dextrose 500 mg/ (Premix) 100 mls @ 100 mls/hr IV Q24H [facility] Last Admin: 11/19/16 16:52 Dose: Not Given Sodium Chloride (Normal Saline) 250 mls @ 500 mls/hr IV ONETIME ONE Stop: 11/19/16 13:29 Last Admin: 11/19/16 12:53 Dose: 500 mls/hr Iopamidol (Isovue-370 (76%)) 64 ml IV ONETIME ONE Stop: 11/19/16 12:47 Last Admin: 11/19/16 14:02 Dose: 64 ml Lorazepam (Ativan) 0.5 mg PO ONETIME ONE Stop: 11/21/16 03:47 Last Admin: 11/21/16 03:59 Dose: 0.5 mg Methylprednisolone Sodium Succinate (Solu-Medrol) 125 mg IVPUSH Q8H [facility] Last Admin: 11/20/16 17:20 Dose: Not Given Methylprednisolone Sodium Succinate (Solu-Medrol) 125 mg IVPUSH DAILY [facility] Last Admin: 11/21/16 09:36 Dose: 125 mg Morphine Sulfate (Morphine) 1 mg IVPUSH Q2H PRN PRN Reason: Dyspnea Last Admin: 11/19/16 03:40 Dose: 1 mg Morphine Sulfate (Morphine) 1 mg IVPUSH Q1H PRN PRN Reason: Dyspnea Last Admin: 11/21/16 06:46 Dose: 1 mg Non-Formulary Medication (Compressor, For Nebulizer [Pulmo-Aide]) 1 each MC TID [place] Polyethylene Glycol (Miralax) 17 gm PO DAILY PRN PRN Reason: Constipation Polyethylene Glycol (Miralax) 17 gm PO DAILY PRN PRN Reason: Constipation Potassium Chloride (Klor-Con M20) 40 meq PO ONETIME ONE Stop: 11/18/16 15:01 Last Admin: 11/18/16 15:20 Dose: 40 meq Potassium Chloride (Klor-Con M20) 20 meq PO TID [facility] Last Admin: 11/20/16 17:20 Dose: Not Given Potassium Chloride (Klor-Con M20) 40 meq PO TID [facility] Last Admin: 11/21/16 09:36 Dose: 40 meq - Exam General: Alert, Oriented Neck: Supple Lungs: Normal Respiratory Effort, Crackles Cardiovascular: Regular Rate, Regular Rhythm, No Murmurs Extremities: No Pedal Edema - Problem List & Annotations (1) Palliative care status SNOMED Code(s): 483442680 Code(s): Z51.5 - ENCOUNTER FOR PALLIATIVE CARE Status: Acute Current Visit: Yes (2) Anemia SNOMED Code(s): 649833990 Code(s): D64.9 - ANEMIA, UNSPECIFIED Status: Acute Current Visit: No Qualifiers: Anemia type: unspecified type Qualified Code(s): D64.9 - Anemia, unspecified (3) CHF (congestive heart failure) SNOMED Code(s): 67090979 Code(s): I50.9 - HEART FAILURE, UNSPECIFIED Status: Acute Current Visit: Yes Qualifiers: Congestive heart failure type: unspecified congestive heart failure type Congestive heart failure chronicity: acute on chronic Qualified Code(s): I50.9 - Heart failure, unspecified (4) Hypokalemia SNOMED Code(s): 38304173 Code(s): E87.6 - HYPOKALEMIA Status: Acute Current Visit: Yes (5) Pneumonia SNOMED Code(s): 532431687 Code(s): J18.9 - PNEUMONIA, UNSPECIFIED ORGANISM Status: Acute Current Visit: Yes Qualifiers: Pneumonia type: due to unspecified organism (6) COPD (chronic obstructive pulmonary disease) SNOMED Code(s): 42379567 Code(s): J44.9 - CHRONIC OBSTRUCTIVE PULMONARY DISEASE, UNSPECIFIED Status : Acute Current Visit: No (7) Type 2 diabetes mellitus SNOMED Code(s): 65213597 Code(s): E11.9 - TYPE 2 DIABETES MELLITUS WITHOUT COMPLICATIONS Status: Acute Current Visit: No (8) Chronic kidney disease, stage III (moderate) SNOMED Code(s): 000381833 Code(s): N18.3 - CHRONIC KIDNEY DISEASE, STAGE 3 (MODERATE) Status: Chronic Priority: Medium Current Visit: No Annotation/Comment:: Stable Cr 1.4-1.6. (9) Pleural effusion SNOMED Code(s): 95700502 Code(s): J90 - PLEURAL EFFUSION, NOT ELSEWHERE CLASSIFIED Status: Acute Current Visit: Yes - Problem List Review Problem List Initiated/Reviewed/Updated: Yes - My Orders Last 24 Hours: My Active Orders 11/20/16 09:00 Potassium Chloride [Klor-Con M20] 40 meq PO TID 11/20/16 11:13 Pulse Oximetry Continuous Monitoring [OM.PC] Routine 11/20/16 11:14 Overnight Pulse Oximetry [RC] CONTINUOUS 11/20/16 11:15 Transfer Patient (Change bed) [ADT] Routine 11/21/16 09:45 Furosemide [Lasix] 40 mg PO BIDDIURETIC predniSONE 60 mg PO DAILY 11/21/16 09:46 Potassium Chloride [Klor-Con M20] 20 meq PO TID - Plan Plan:: 1. Stop Solu-Medrol and IV Lasix. 2. Lasix by mouth 40 mg twice a day. 3. Prednisone 60 mg by mouth daily. 4. PT/OT for strengthening and ambulation. 5. Atarax 25 mg every 6 hours when necessary anxiety. 6. DC morphine.
--- NOTE | 2016-11-21 11:01 | CR ---
INDICATION: Abdominal distention. ABDOMEN: Three images of the abdomen in supine projection continue to reveal a dilated loop of what appears to be very redundant sigmoid colon, strongly suggesting the possibility of a partial or incomplete sigmoid volvulus. Other etiology such as a neoplasm at the sigmoid cannot be excluded. There appears to be slightly increased gaseous distention of small bowel loops, suggesting an ongoing obstructive process. Depending upon clinical correlation, additional examination may be warranted, such as colonoscopy or barium enema. CT with rectal contrast may also be helpful. MTDD
--- NOTE | 2016-11-21 12:28 | PCM.CONSN ---
- General Info Date of Service: 11/21/16 - Review of Systems Gastrointestinal: Reports: Flatus. Denies: Abdominal Pain - Patient Data Vitals - Most Recent: Last Vital Signs Temp 36.4 C 11/21/16 07:45 Pulse 77 11/21/16 09:37 Resp 18 11/21/16 07:45 BP 107/65 11/21/16 09:37 Pulse Ox 93 L 11/21/16 08:00 Weight - Most Recent: 76.385 kg I&O - Last 24 Hours: Intake & Output 11/20/16 11/21/16 11/21/16 22:59 06:59 14:59 Intake Total 50 Output Total 100 Balance 50 -100 Lab Results Last 24 Hours: Laboratory Results - last 24 hr 11/20/16 11/21/16 11/21/16 Range/Units 16:47 05:10 05:10 Sodium 142 (135-145) mmol/L Potassium 4.4 D (3.5-5.3) mmol/L Chloride 106 (100-110) mmol/L Carbon Dioxide 29 (23-29) mmol/L BUN 35 H (8-23) mg/dL Creatinine 1.6 H (0.6-1.3) mg/dL Est Cr Clr Drug Dosing 34.85 mL/min Estimated GFR (MDRD) 41 L (>60) BUN/Creatinine Ratio 21.9 H (9-20) Glucose 209 H (80-116) mg/dL POC Glucose 240 H (80-116) mg/dL Calcium 9.2 (8.6-10.2) mg/dL B-Natriuretic Peptide 1230 H* (0-100) pg/mL 11/21/16 Range/Units 05:10 Sodium (135-145) mmol/L Potassium (3.5-5.3) mmol/L Chloride (100-110) mmol/L Carbon Dioxide (23-29) mmol/L BUN (8-23) mg/dL Creatinine (0.6-1.3) mg/dL Est Cr Clr Drug Dosing mL/min Estimated GFR (MDRD) (>60) BUN/Creatinine Ratio (9-20) Glucose (80-116) mg/dL POC Glucose 191 H (80-116) mg/dL Calcium (8.6-10.2) mg/dL B-Natriuretic Peptide (0-100) pg/mL Med Orders - Current: Current Medications Acetaminophen (Tylenol) 650 mg PO Q4H PRN PRN Reason: Pain/Fever Albuterol (Ventolin Hfa) 0 gm INH Q4H PRN PRN Reason: Shortness of Breath Last Admin: 11/20/16 13:17 Dose: 2 inhalation Albuterol (Proventil Neb Soln) 2.5 mg NEB Q4H PRN PRN Reason: SOB/WHEEZING/COUGH Last Admin: 11/20/16 21:01 Dose: 2.5 mg Albuterol/Ipratropium (Duoneb 3.0-0.5 Mg/3 Ml) 3 ml NEB Q4H PRN PRN Reason: Shortness of Breath Last Admin: 11/21/16 07:12 Dose: 3 ml Aspirin (Aspirin) 81 mg PO DAILY [facility] Last Admin: 11/21/16 09:38 Dose: 81 mg Bisacodyl (Dulcolax) 10 mg RECTAL DAILY PRN PRN Reason: Constipation Last Admin: 11/20/16 11:19 Dose: 10 mg Carvedilol (Coreg) 3.125 mg PO DAILY [facility] Last Admin: 11/21/16 09:37 Dose: 3.125 mg Clopidogrel Bisulfate (Plavix) 75 mg PO DAILY [facility] Last Admin: 11/21/16 09:36 Dose: 75 mg Donepezil HCl (Aricept) 5 mg PO BEDTIME [facility] Last Admin: 11/20/16 20:21 Dose: 5 mg Enoxaparin Sodium (Lovenox) 30 mg SUBCUT Q24H [facility] Last Admin: 11/20/16 20:23 Dose: 30 mg Finasteride (Proscar) 5 mg PO DAILY [facility] Last Admin: 11/21/16 09:36 Dose: 5 mg Furosemide (Lasix) 40 mg PO BIDDIURETIC [facility] Glipizide (Glucotrol) 2.5 mg PO DAILY [facility] Last Admin: 11/21/16 09:37 Dose: 2.5 mg Sodium Chloride (Normal Saline) 250 mls @ 100 mls/hr IV ASDIRECTED [facility] Last Admin: 11/18/16 16:40 Dose: 100 mls/hr Levofloxacin/Dextrose 750 mg/ (Premix) 150 mls @ 100 mls/hr IV Q24H [facility] Last Admin: 11/20/16 23:35 Dose: 100 mls/hr Isosorbide Mononitrate (Imdur) 30 mg PO DAILY [facility] Last Admin: 11/21/16 09:37 Dose: 30 mg Lactulose (Chronulac) 10 gm PO DAILY PRN PRN Reason: CONSTIPATION Lisinopril (Prinivil) 2.5 mg PO DAILY [facility] Last Admin: 11/21/16 09:36 Dose: 2.5 mg Lorazepam (Ativan) 0.25 mg PO Q8H PRN PRN Reason: ANXIETY Magnesium Hydroxide (Milk Of Magnesia) 30 ml PO DAILY PRN PRN Reason: Constipation Last Admin: 11/20/16 10:11 Dose: 30 ml Metoclopramide HCl (Reglan) 5 mg IV Q6H [facility] Last Admin: 11/21/16 11:11 Dose: 5 mg Ondansetron HCl (Zofran Odt) 4 mg PO Q6H PRN PRN Reason: nausea, able to take PO Polyethylene Glycol (Miralax) 17 gm PO DAILY PRN PRN Reason: Constipation Potassium Chloride (Klor-Con M20) 20 meq PO TID [facility] Prednisone (Prednisone) 60 mg PO DAILY [facility] Simvastatin (Zocor) 10 mg PO BEDTIME [facility] Last Admin: 11/20/16 20:23 Dose: 10 mg Sodium Chloride (Saline Flush) 10 ml FLUSH ASDIRECTED PRN PRN Reason: Keep Vein Open Last Admin: 11/21/16 04:56 Dose: 10 ml Spironolactone (Aldactone) 25 mg PO DAILY [facility] Last Admin: 11/21/16 09:38 Dose: 25 mg Terazosin HCl (Hytrin) 4 mg PO BEDTIME [facility] Last Admin: 11/20/16 20:22 Dose: 4 mg Tiotropium [place] (Spiriva Handihaler) 18 mcg INH DAILY [facility] Last Admin: 11/21/16 09:38 Dose: 1 inhalation Vit C/Vit E/Zinc/Copper/Lutein (Ocuvite Lutein) 1 each PO DAILY [facility] Last Admin: 11/21/16 09:36 Dose: 1 each Discontinued Medications Acetaminophen (Tylenol) 650 mg PO Q4H PRN PRN Reason: Pain (Mild 1-3)/fever Diphenhydramine HCl (Benadryl) 50 mg IM ONETIME ONE Stop: 11/19/16 12:56 Last Admin: 11/19/16 13:29 Dose: 50 mg Enoxaparin Sodium (Lovenox) 80 mg SUBCUT ONETIME ONE Stop: 11/19/16 04:45 Last Admin: 11/19/16 07:57 Dose: Not Given Enoxaparin Sodium (Lovenox) 70 mg SUBCUT ONETIME ONE Stop: 11/19/16 04:45 Last Admin: 11/19/16 05:24 Dose: 70 mg Furosemide (Lasix) 80 mg PO DAILY [facility] Furosemide (Lasix) 40 mg IVPUSH NOW ONE Stop: 11/18/16 17:40 Last Admin: 11/18/16 17:53 Dose: 40 mg Furosemide (Lasix) 60 mg IVPUSH NOW ONE Stop: 11/19/16 08:07 Last Admin: 11/19/16 08:36 Dose: 60 mg Furosemide (Lasix) 40 mg IVPUSH ONETIME ONE Stop: 11/19/16 16:01 Last Admin: 11/19/16 16:10 Dose: 40 mg Furosemide (Lasix) 40 mg PO BIDDIURETIC [facility] Last Admin: 11/21/16 09:37 Dose: 40 mg Hydroxyzine HCl (Atarax) 25 mg PO Q6H PRN PRN Reason: Anxiety Levofloxacin/Dextrose 500 mg/ (Premix) 100 mls @ 100 mls/hr IV Q24H [facility] Last Admin: 11/19/16 16:52 Dose: Not Given Sodium Chloride (Normal Saline) 250 mls @ 500 mls/hr IV ONETIME ONE Stop: 11/19/16 13:29 Last Admin: 11/19/16 12:53 Dose: 500 mls/hr Iopamidol (Isovue-370 (76%)) 64 ml IV ONETIME ONE Stop: 11/19/16 12:47 Last Admin: 11/19/16 14:02 Dose: 64 ml Lorazepam (Ativan) 0.5 mg PO ONETIME ONE Stop: 11/21/16 03:47 Last Admin: 11/21/16 03:59 Dose: 0.5 mg Methylprednisolone Sodium Succinate (Solu-Medrol) 125 mg IVPUSH Q8H [facility] Last Admin: 11/20/16 17:20 Dose: Not Given Methylprednisolone Sodium Succinate (Solu-Medrol) 125 mg IVPUSH DAILY [facility] Last Admin: 11/21/16 09:36 Dose: 125 mg Morphine Sulfate (Morphine) 1 mg IVPUSH Q2H PRN PRN Reason: Dyspnea Last Admin: 11/19/16 03:40 Dose: 1 mg Morphine Sulfate (Morphine) 1 mg IVPUSH Q1H PRN PRN Reason: Dyspnea Last Admin: 11/21/16 06:46 Dose: 1 mg Non-Formulary Medication (Compressor, For Nebulizer [Pulmo-Aide]) 1 each MC TID [place] Polyethylene Glycol (Miralax) 17 gm PO DAILY PRN PRN Reason: Constipation Polyethylene Glycol (Miralax) 17 gm PO DAILY PRN PRN Reason: Constipation Potassium Chloride (Klor-Con M20) 40 meq PO ONETIME ONE Stop: 11/18/16 15:01 Last Admin: 11/18/16 15:20 Dose: 40 meq Potassium Chloride (Klor-Con M20) 20 meq PO TID [facility] Last Admin: 11/20/16 17:20 Dose: Not Given Potassium Chloride (Klor-Con M20) 40 meq PO TID [facility] Last Admin: 11/21/16 09:36 Dose: 40 meq - Exam General: Alert, Oriented, Cooperative Lungs: Clear to Auscultation GI/Abdominal Exam: Normal Bowel Sounds, Non-Tender, Distended, Other (KUB essentially unchanged. ). No: Rebound Consult PN Assessment/Plan Procedures: Procedures AIRWAY INHALATION TREATMENT (03/05/16) ASSAY OF AMYLASE (03/05/16) ASSAY OF CK (CPK) (03/05/16) ASSAY OF MAGNESIUM (03/05/16) ASSAY OF NATRIURETIC PEPTIDE (04/09/16) ASSAY OF PHOSPHORUS (03/05/16) ASSAY OF TROPONIN QUANT (04/09/16) BLOOD CULTURE FOR BACTERIA (03/05/16) BLOOD GASES ANY COMBINATION (04/09/16) CHEST X-RAY 1 VIEW FRONTAL (04/09/16) CHEST X-RAY 2VW FRONTAL&LATL (05/14/16) CINE/VID X-RAY THROAT/ESOPH (05/10/16) COMPLETE CBC AUTOMATED (03/05/16) COMPLETE CBC W/AUTO DIFF WBC (05/14/16) COMPREHEN METABOLIC PANEL (03/05/16) CREATINE MB FRACTION (03/05/16) CRITICAL CARE ADDL 30 MIN (04/09/16) CRITICAL CARE FIRST HOUR (04/09/16) CULTURE AEROBIC IDENTIFY (05/14/16) CULTURE OTHR SPECIMN AEROBIC (05/14/16) ELECTROCARDIOGRAM TRACING (04/09/16) EMERGENCY DEPT VISIT (03/05/16) EMERGENCY DEPT VISIT (03/02/15) EMERGENCY DEPT VISIT (03/02/15) EVALUATE PT USE OF INHALER (03/05/16) FIBRIN DEGRADATION QUANT (03/05/16) GAIT TRAINING THERAPY (03/05/16) GLUCOSE BLOOD TEST (03/05/16) GLYCOSYLATED HEMOGLOBIN TEST (08/19/16) HYDRATE IV INFUSION ADD-ON (04/09/16) INFLUENZA ASSAY W/OPTIC (05/15/16) INSERT EMERGENCY AIRWAY (04/09/16) INSERT TEMP BLADDER CATH (04/09/16) KNEE ARTHROSCOPY/SURGERY (12/07/12) LIPID PANEL (05/17/16) METABOLIC PANEL TOTAL CA (08/19/16) MICROBE SUSCEPTIBLE NADIR (10/31/16) MRI JNT OF LWR EXTRE W/O DYE (11/27/12) NON-ROUTINE BL DRAW 3/> YRS (04/09/16) OCCULT BLD FECES 1-3 TESTS (03/05/16) OCCULT BLOOD FECES (03/05/16) PROTHROMBIN TIME (03/05/16) PT EVALUATION (03/05/16) ROUTINE VENIPUNCTURE (08/19/16) SMEAR GRAM STAIN (05/14/16) THER/PROPH/DIAG INJ IV PUSH (04/09/16) THERAPEUTIC ACTIVITIES (03/05/16) THROMBOPLASTIN TIME PARTIAL (03/05/16) TX/PRO/DX INJ NEW DRUG ADDON (04/09/16) TX/PRO/DX INJ SAME DRUG CENTERLESS GRINDER SET UP OPERATOR (04/09/16) URINALYSIS AUTO W/SCOPE (10/31/16) URINE BACTERIA CULTURE (10/31/16) URINE CULTURE/COLONY COUNT (10/31/16) VITAL CAPACITY TEST (03/05/16) WITHDRAWAL OF ARTERIAL BLOOD (04/09/16) X-RAY EXAM OF ABDOMEN (03/05/16) X-RAY EXAM OF KNEE 3 (11/24/12) X-RAY EXAM OF PELVIS (11/24/12) X-RAY EXAM SERIES ABDOMEN (03/05/16) (1) Abdominal distension (gaseous) SNOMED Code(s): 284404527 Code(s): R14.0 - ABDOMINAL DISTENSION (GASEOUS) Current Visit: Yes (2) CHF (congestive heart failure) SNOMED Code(s): 58150980 Code(s): I50.9 - HEART FAILURE, UNSPECIFIED Current Visit: Yes Qualifiers: Congestive heart failure type: unspecified congestive heart failure type Congestive heart failure chronicity: acute on chronic Qualified Code(s): I50.9 - Heart failure, unspecified (3) Pleural effusion SNOMED Code(s): 39627947 Code(s): J90 - PLEURAL EFFUSION, NOT ELSEWHERE CLASSIFIED Current Visit: Yes (4) Pneumonia SNOMED Code(s): 425955288 Code(s): J18.9 - PNEUMONIA, UNSPECIFIED ORGANISM Current Visit: Yes Qualifiers: Pneumonia type: due to unspecified organism Problem List Initiated/Reviewed/Updated: Yes My Orders Last 24 Hours: My Active Orders 11/20/16 11:30 Metoclopramide [Reglan] 5 mg IV Q6H Plan: would continue current rx.
[2016-11-21] MEDS: Donepezil 5 MG Tab PO SCH (20:15)
[2016-11-21] MEDS: Simvastatin 10 MG Tab PO SCH (20:16)
[2016-11-21] MEDS: Enoxaparin 30 MG/0.3 ML Syringe SUBCUT SCH (20:17)
[2016-11-21] MEDS: Levofloxacin/Dextrose 5%-Water 750 MG in Premix Bag 1 BAG IV SCH (23:32)
[2016-11-22] MEDS: Albuterol/Ipratropium 3.0-0.5 MG/3 ML Neb Soln NEB PRN ×4 (01:20→21:07)
[2016-11-22] MEDS: Sodium Chloride 0.9% 10 ML Syringe FLUSH PRN ×5 (01:30→21:17)
[2016-11-22] MEDS: LORazepam 0.5 MG Tab PO PRN ×2 (04:43→21:06)
[2016-11-22] MEDS: Albuterol 0.083% 2.5 MG/3 ML Neb Soln NEB PRN ×2 (04:48→15:54)
[2016-11-22] MEDS: Metoclopramide 10 MG/2 ML SDV IV SCH ×3 (06:07→18:08)
--- NOTE | 2016-11-22 08:49 | PCM.PN ---
- General Info Date of Service: 11/22/16 Subjective Update: Patient had a terrible night, with difficulty in breathing. He needed a nonrebreather but according to the staff is oxygenation was still normal at 100% . He has no appetite, feels weak, but denies any fever chills chest pain. Is currently on IV Levaquin, oral Lasix and prednisone. - Patient Data Vitals - Most Recent: Last Vital Signs Temp 98.2 F 11/22/16 04:00 Pulse 92 11/22/16 04:00 Resp 20 11/22/16 04:00 BP 113/74 11/22/16 04:00 Pulse Ox 100 11/22/16 07:55 Weight - Most Recent: 75.115 kg I&O - Last 24 Hours: Intake & Output 11/21/16 11/22/16 11/22/16 22:59 06:59 14:59 Intake Total 125 460 Balance 125 460 Lab Results Last 24 Hours: Laboratory Results - last 24 hr 11/21/16 11/22/16 Range/Units 17:04 06:11 POC Glucose 243 H 183 H (80-116) mg/dL Med Orders - Current: Current Medications Acetaminophen (Tylenol) 650 mg PO Q4H PRN PRN Reason: Pain/Fever Albuterol (Ventolin Hfa) 0 gm INH Q4H PRN PRN Reason: Shortness of Breath Last Admin: 11/20/16 13:17 Dose: 2 inhalation Albuterol (Proventil Neb Soln) 2.5 mg NEB Q4H PRN PRN Reason: SOB/WHEEZING/COUGH Last Admin: 11/22/16 04:48 Dose: 2.5 mg Albuterol/Ipratropium (Duoneb 3.0-0.5 Mg/3 Ml) 3 ml NEB Q4H PRN PRN Reason: Shortness of Breath Last Admin: 11/22/16 01:20 Dose: 3 ml Aspirin (Aspirin) 81 mg PO DAILY [place] Last Admin: 11/21/16 09:38 Dose: 81 mg Bisacodyl (Dulcolax) 10 mg RECTAL DAILY PRN PRN Reason: Constipation Last Admin: 11/20/16 11:19 Dose: 10 mg Carvedilol (Coreg) 3.125 mg PO DAILY [place] Last Admin: 11/21/16 09:37 Dose: 3.125 mg Clopidogrel Bisulfate (Plavix) 75 mg PO DAILY [facility] Last Admin: 11/21/16 09:36 Dose: 75 mg Donepezil HCl (Aricept) 5 mg PO BEDTIME [facility] Last Admin: 11/21/16 20:15 Dose: 5 mg Enoxaparin Sodium (Lovenox) 30 mg SUBCUT Q24H [facility] Last Admin: 11/21/16 20:17 Dose: 30 mg Finasteride (Proscar) 5 mg PO DAILY [facility] Last Admin: 11/21/16 09:36 Dose: 5 mg Furosemide (Lasix) 40 mg PO BIDDIURETIC [facility] Last Admin: 11/21/16 13:58 Dose: 40 mg Glipizide (Glucotrol) 2.5 mg PO DAILY [facility] Last Admin: 11/21/16 09:37 Dose: 2.5 mg Sodium Chloride (Normal Saline) 250 mls @ 100 mls/hr IV ASDIRECTED [facility] Last Admin: 11/18/16 16:40 Dose: 100 mls/hr Levofloxacin/Dextrose 750 mg/ (Premix) 150 mls @ 100 mls/hr IV Q24H [facility] Last Admin: 11/21/16 23:32 Dose: 100 mls/hr Isosorbide Mononitrate (Imdur) 30 mg PO DAILY [facility] Last Admin: 11/21/16 09:37 Dose: 30 mg Lactulose (Chronulac) 10 gm PO DAILY PRN PRN Reason: CONSTIPATION Lisinopril (Prinivil) 2.5 mg PO DAILY [facility] Last Admin: 11/21/16 09:36 Dose: 2.5 mg Lorazepam (Ativan) 0.25 mg PO Q8H PRN PRN Reason: ANXIETY Last Admin: 11/22/16 04:43 Dose: 0.25 mg Magnesium Hydroxide (Milk Of Magnesia) 30 ml PO DAILY PRN PRN Reason: Constipation Last Admin: 11/20/16 10:11 Dose: 30 ml Metoclopramide HCl (Reglan) 5 mg IV Q6H [facility] Last Admin: 11/22/16 06:07 Dose: 5 mg Ondansetron HCl (Zofran Odt) 4 mg PO Q6H PRN PRN Reason: nausea, able to take PO Polyethylene Glycol (Miralax) 17 gm PO DAILY PRN PRN Reason: Constipation Potassium Chloride (Klor-Con M20) 20 meq PO TID [facility] Last Admin: 11/21/16 20:16 Dose: 20 meq Prednisone (Prednisone) 60 mg PO DAILY [facility] Simvastatin (Zocor) 10 mg PO BEDTIME [facility] Last Admin: 11/21/16 20:16 Dose: 10 mg Sodium Chloride (Saline Flush) 10 ml FLUSH ASDIRECTED PRN PRN Reason: Keep Vein Open Last Admin: 11/22/16 06:08 Dose: 10 ml Spironolactone (Aldactone) 25 mg PO DAILY [facility] Last Admin: 11/21/16 09:38 Dose: 25 mg Terazosin HCl (Hytrin) 4 mg PO BEDTIME [facility] Last Admin: 11/21/16 20:15 Dose: 4 mg Tiotropium Lee (Spiriva Handihaler) 18 mcg INH DAILY [facility] Last Admin: 11/21/16 09:38 Dose: 1 inhalation Vit C/Vit E/Zinc/Copper/Lutein (Ocuvite Lutein) 1 each PO DAILY [facility] Last Admin: 11/21/16 09:36 Dose: 1 each Discontinued Medications Acetaminophen (Tylenol) 650 mg PO Q4H PRN PRN Reason: Pain (Mild 1-3)/fever Diphenhydramine HCl (Benadryl) 50 mg IM ONETIME ONE Stop: 11/19/16 12:56 Last Admin: 11/19/16 13:29 Dose: 50 mg Enoxaparin Sodium (Lovenox) 80 mg SUBCUT ONETIME ONE Stop: 11/19/16 04:45 Last Admin: 11/19/16 07:57 Dose: Not Given Enoxaparin Sodium (Lovenox) 70 mg SUBCUT ONETIME ONE Stop: 11/19/16 04:45 Last Admin: 11/19/16 05:24 Dose: 70 mg Furosemide (Lasix) 80 mg PO DAILY [facility] Furosemide (Lasix) 40 mg IVPUSH NOW ONE Stop: 11/18/16 17:40 Last Admin: 11/18/16 17:53 Dose: 40 mg Furosemide (Lasix) 60 mg IVPUSH NOW ONE Stop: 11/19/16 08:07 Last Admin: 11/19/16 08:36 Dose: 60 mg Furosemide (Lasix) 40 mg IVPUSH ONETIME ONE Stop: 11/19/16 16:01 Last Admin: 11/19/16 16:10 Dose: 40 mg Furosemide (Lasix) 40 mg PO BIDDIURETIC [place] Last Admin: 11/21/16 09:37 Dose: 40 mg Hydroxyzine HCl (Atarax) 25 mg PO Q6H PRN PRN Reason: Anxiety Levofloxacin/Dextrose 500 mg/ (Premix) 100 mls @ 100 mls/hr IV Q24H [facility] Last Admin: 11/19/16 16:52 Dose: Not Given Sodium Chloride (Normal Saline) 250 mls @ 500 mls/hr IV ONETIME ONE Stop: 11/19/16 13:29 Last Admin: 11/19/16 12:53 Dose: 500 mls/hr Iopamidol (Isovue-370 (76%)) 64 ml IV ONETIME ONE Stop: 11/19/16 12:47 Last Admin: 11/19/16 14:02 Dose: 64 ml Lorazepam (Ativan) 0.5 mg PO ONETIME ONE Stop: 11/21/16 03:47 Last Admin: 11/21/16 03:59 Dose: 0.5 mg Methylprednisolone Sodium Succinate (Solu-Medrol) 125 mg IVPUSH Q8H [facility] Last Admin: 11/20/16 17:20 Dose: Not Given Methylprednisolone Sodium Succinate (Solu-Medrol) 125 mg IVPUSH DAILY [facility] Last Admin: 11/21/16 09:36 Dose: 125 mg Morphine Sulfate (Morphine) 1 mg IVPUSH Q2H PRN PRN Reason: Dyspnea Last Admin: 11/19/16 03:40 Dose: 1 mg Morphine Sulfate (Morphine) 1 mg IVPUSH Q1H PRN PRN Reason: Dyspnea Last Admin: 11/21/16 06:46 Dose: 1 mg Non-Formulary Medication (Compressor, For Nebulizer [Pulmo-Aide]) 1 each MC TID [facility] Polyethylene Glycol (Miralax) 17 gm PO DAILY PRN PRN Reason: Constipation Polyethylene Glycol (Miralax) 17 gm PO DAILY PRN PRN Reason: Constipation Potassium Chloride (Klor-Con M20) 40 meq PO ONETIME ONE Stop: 11/18/16 15:01 Last Admin: 11/18/16 15:20 Dose: 40 meq Potassium Chloride (Klor-Con M20) 20 meq PO TID [place] Last Admin: 11/20/16 17:20 Dose: Not Given Potassium Chloride (Klor-Con M20) 40 meq PO TID [facility] Last Admin: 11/21/16 09:36 Dose: 40 meq - Exam Quality Assessment: Supplemental Oxygen General: Alert, Oriented HEENT: Pupils Equal Neck: Supple Lungs: Crackles Cardiovascular: Regular Rate Extremities: No Pedal Edema Skin: Warm Psy/Mental Status: Alert, Depressed - Problem List & Annotations (1) CHF (congestive heart failure) SNOMED Code(s): 64323804 Code(s): I50.9 - HEART FAILURE, UNSPECIFIED Status: Acute Current Visit: Yes Qualifiers: Congestive heart failure type: unspecified congestive heart failure type Congestive heart failure chronicity: acute on chronic Qualified Code(s): I50.9 - Heart failure, unspecified (2) Pneumonia SNOMED Code(s): 710613712 Code(s): J18.9 - PNEUMONIA, UNSPECIFIED ORGANISM Status: Acute Current Visit: Yes Qualifiers: Pneumonia type: due to unspecified organism (3) COPD (chronic obstructive pulmonary disease) SNOMED Code(s): 71458284 Code(s): J44.9 - CHRONIC OBSTRUCTIVE PULMONARY DISEASE, UNSPECIFIED Status : Acute Current Visit: No (4) Type 2 diabetes mellitus SNOMED Code(s): 75204611 Code(s): E11.9 - TYPE 2 DIABETES MELLITUS WITHOUT COMPLICATIONS Status: Acute Current Visit: No (5) Hx of coronary artery bypass graft SNOMED Code(s): 781702801, 702298561 Code(s): Z95.1 - PRESENCE OF AORTOCORONARY BYPASS GRAFT Status: Chronic Current Visit: No - Problem List Review Problem List Initiated/Reviewed/Updated: Yes - My Orders Last 24 Hours: My Active Orders 11/22/16 08:44 Chest 1V Frontal [CR] Stat 11/23/16 05:11 B-TYPE NATRIURETIC PEPTIDE,BNP [CHEM] AM CBC WITH AUTO DIFF [HEME] AM COMPREHENSIVE METABOLIC PN,CMP [CHEM] AM - Plan Plan:: At this time I'll continue the current medications. I'll repeat a CBC basic profile BNP in the morning. I'll also repeat a chest x-ray today. I've asked prescription therapy to wean off his oxygenation to nasal cannula, to keep his O2 saturations above 88%. We'll continue with DuoNeb treatments as needed. Encourage ambulation.
[2016-11-22] MEDS: Tiotropium Inhaler 18 MCG Inhalation Powder Cap Kit of 5 INH SCH (09:00)
[2016-11-22] MEDS: Clopidogrel 75 MG Tab PO SCH (09:00)
[2016-11-22] MEDS: Spironolactone 25 MG Tab PO SCH (09:00)
[2016-11-22] MEDS: Lutein/Minerals/Vitamin C/Vitamin E Acetate Cap PO SCH (09:00)
[2016-11-22] MEDS: Furosemide 40 MG Tab PO SCH ×2 (09:00→14:49)
[2016-11-22] MEDS: glipiZIDE 5 MG Tab PO SCH (09:00)
[2016-11-22] MEDS: Potassium Chloride 20 MEQ Tab.ER PO SCH ×3 (09:00→21:03)
[2016-11-22] MEDS: Lisinopril 2.5 MG Tab PO SCH (09:00)
[2016-11-22] MEDS: Finasteride 5 MG Tab PO SCH (09:00)
[2016-11-22] MEDS: Aspirin 81 MG Tab.Chew PO SCH (09:00)
[2016-11-22] MEDS: predniSONE 20 MG Tab PO SCH (09:00)
[2016-11-22] MEDS: Isosorbide Mononitrate 30 MG Tab.ER PO SCH (09:00)
[2016-11-22] MEDS: Carvedilol 3.125 MG Tab PO SCH (12:02)
--- NOTE | 2016-11-22 16:21 | PCM.CONSN ---
- General Info Date of Service: 11/22/16 - Review of Systems Gastrointestinal: Reports: Flatus (reports lots of gas ), Other (bowel movements. ) - Patient Data Vitals - Most Recent: Last Vital Signs Temp 36.4 C 11/22/16 12:40 Pulse 88 11/22/16 15:56 Resp 20 11/22/16 12:40 BP 90/50 L 11/22/16 12:40 Pulse Ox 94 L 11/22/16 15:56 Weight - Most Recent: 75.115 kg I&O - Last 24 Hours: Intake & Output 11/22/16 11/22/16 11/22/16 06:59 14:59 22:59 Intake Total 460 Output Total 250 Balance 460 -250 Lab Results Last 24 Hours: Laboratory Results - last 24 hr 11/21/16 11/22/16 Range/Units 17:04 06:11 POC Glucose 243 H 183 H (80-116) mg/dL Med Orders - Current: Current Medications Acetaminophen (Tylenol) 650 mg PO Q4H PRN PRN Reason: Pain/Fever Albuterol (Ventolin Hfa) 0 gm INH Q4H PRN PRN Reason: Shortness of Breath Last Admin: 11/20/16 13:17 Dose: 2 inhalation Albuterol (Proventil Neb Soln) 2.5 mg NEB Q4H PRN PRN Reason: SOB/WHEEZING/COUGH Last Admin: 11/22/16 15:54 Dose: 2.5 mg Albuterol/Ipratropium (Duoneb 3.0-0.5 Mg/3 Ml) 3 ml NEB Q4H PRN PRN Reason: Shortness of Breath Last Admin: 11/22/16 13:26 Dose: 3 ml Aspirin (Aspirin) 81 mg PO DAILY [facility] Last Admin: 11/22/16 09:00 Dose: 81 mg Bisacodyl (Dulcolax) 10 mg RECTAL DAILY PRN PRN Reason: Constipation Last Admin: 11/20/16 11:19 Dose: 10 mg Carvedilol (Coreg) 3.125 mg PO DAILY [facility] Last Admin: 11/22/16 12:02 Dose: 3.125 mg Clopidogrel Bisulfate (Plavix) 75 mg PO DAILY [facility] Last Admin: 11/22/16 09:00 Dose: 75 mg Donepezil HCl (Aricept) 5 mg PO BEDTIME [facility] Last Admin: 11/21/16 20:15 Dose: 5 mg Enoxaparin Sodium (Lovenox) 30 mg SUBCUT Q24H [facility] Last Admin: 11/21/16 20:17 Dose: 30 mg Finasteride (Proscar) 5 mg PO DAILY [facility] Last Admin: 11/22/16 09:00 Dose: 5 mg Furosemide (Lasix) 40 mg PO BIDDIURETIC [facility] Last Admin: 11/22/16 14:49 Dose: 40 mg Glipizide (Glucotrol) 2.5 mg PO DAILY [facility] Last Admin: 11/22/16 09:00 Dose: 2.5 mg Sodium Chloride (Normal Saline) 250 mls @ 100 mls/hr IV ASDIRECTED [facility] Last Admin: 11/18/16 16:40 Dose: 100 mls/hr Levofloxacin/Dextrose 750 mg/ (Premix) 150 mls @ 100 mls/hr IV Q24H [facility] Last Admin: 11/21/16 23:32 Dose: 100 mls/hr Isosorbide Mononitrate (Imdur) 30 mg PO DAILY [facility] Last Admin: 11/22/16 09:00 Dose: 30 mg Lactulose (Chronulac) 10 gm PO DAILY PRN PRN Reason: CONSTIPATION Lisinopril (Prinivil) 2.5 mg PO DAILY [facility] Last Admin: 11/22/16 09:00 Dose: 2.5 mg Lorazepam (Ativan) 0.25 mg PO Q8H PRN PRN Reason: ANXIETY Last Admin: 11/22/16 04:43 Dose: 0.25 mg Magnesium Hydroxide (Milk Of Magnesia) 30 ml PO DAILY PRN PRN Reason: Constipation Last Admin: 11/20/16 10:11 Dose: 30 ml Metoclopramide HCl (Reglan) 5 mg IV Q6H [facility] Last Admin: 11/22/16 12:08 Dose: 5 mg Ondansetron HCl (Zofran Odt) 4 mg PO Q6H PRN PRN Reason: nausea, able to take PO Polyethylene Glycol (Miralax) 17 gm PO DAILY PRN PRN Reason: Constipation Potassium Chloride (Klor-Con M20) 20 meq PO TID [facility] Last Admin: 11/22/16 14:49 Dose: 20 meq Prednisone (Prednisone) 60 mg PO DAILY [facility] Last Admin: 11/22/16 09:00 Dose: 60 mg Simvastatin (Zocor) 10 mg PO BEDTIME [place] Last Admin: 11/21/16 20:16 Dose: 10 mg Sodium Chloride (Saline Flush) 10 ml FLUSH ASDIRECTED PRN PRN Reason: Keep Vein Open Last Admin: 11/22/16 12:09 Dose: 10 ml Spironolactone (Aldactone) 25 mg PO DAILY [place] Last Admin: 11/22/16 09:00 Dose: 25 mg Terazosin HCl (Hytrin) 4 mg PO BEDTIME [place] Last Admin: 11/21/16 20:15 Dose: 4 mg Tiotropium [place] (Spiriva Handihaler) 18 mcg INH DAILY [facility] Last Admin: 11/22/16 09:00 Dose: 1 inhalation Vit C/Vit E/Zinc/Copper/Lutein (Ocuvite Lutein) 1 each PO DAILY [facility] Last Admin: 11/22/16 09:00 Dose: 1 each Discontinued Medications Acetaminophen (Tylenol) 650 mg PO Q4H PRN PRN Reason: Pain (Mild 1-3)/fever Diphenhydramine HCl (Benadryl) 50 mg IM ONETIME ONE Stop: 11/19/16 12:56 Last Admin: 11/19/16 13:29 Dose: 50 mg Enoxaparin Sodium (Lovenox) 80 mg SUBCUT ONETIME ONE Stop: 11/19/16 04:45 Last Admin: 11/19/16 07:57 Dose: Not Given Enoxaparin Sodium (Lovenox) 70 mg SUBCUT ONETIME ONE Stop: 11/19/16 04:45 Last Admin: 11/19/16 05:24 Dose: 70 mg Furosemide (Lasix) 80 mg PO DAILY [facility] Furosemide (Lasix) 40 mg IVPUSH NOW ONE Stop: 11/18/16 17:40 Last Admin: 11/18/16 17:53 Dose: 40 mg Furosemide (Lasix) 60 mg IVPUSH NOW ONE Stop: 11/19/16 08:07 Last Admin: 11/19/16 08:36 Dose: 60 mg Furosemide (Lasix) 40 mg IVPUSH ONETIME ONE Stop: 11/19/16 16:01 Last Admin: 11/19/16 16:10 Dose: 40 mg Furosemide (Lasix) 40 mg PO BIDDIURETIC [facility] Last Admin: 11/21/16 09:37 Dose: 40 mg Hydroxyzine HCl (Atarax) 25 mg PO Q6H PRN PRN Reason: Anxiety Levofloxacin/Dextrose 500 mg/ (Premix) 100 mls @ 100 mls/hr IV Q24H [facility] Last Admin: 11/19/16 16:52 Dose: Not Given Sodium Chloride (Normal Saline) 250 mls @ 500 mls/hr IV ONETIME ONE Stop: 11/19/16 13:29 Last Admin: 11/19/16 12:53 Dose: 500 mls/hr Iopamidol (Isovue-370 (76%)) 64 ml IV ONETIME ONE Stop: 11/19/16 12:47 Last Admin: 11/19/16 14:02 Dose: 64 ml Lorazepam (Ativan) 0.5 mg PO ONETIME ONE Stop: 11/21/16 03:47 Last Admin: 11/21/16 03:59 Dose: 0.5 mg Methylprednisolone Sodium Succinate (Solu-Medrol) 125 mg IVPUSH Q8H [facility] Last Admin: 11/20/16 17:20 Dose: Not Given Methylprednisolone Sodium Succinate (Solu-Medrol) 125 mg IVPUSH DAILY [facility] Last Admin: 11/21/16 09:36 Dose: 125 mg Morphine Sulfate (Morphine) 1 mg IVPUSH Q2H PRN PRN Reason: Dyspnea Last Admin: 11/19/16 03:40 Dose: 1 mg Morphine Sulfate (Morphine) 1 mg IVPUSH Q1H PRN PRN Reason: Dyspnea Last Admin: 11/21/16 06:46 Dose: 1 mg Non-Formulary Medication (Compressor, For Nebulizer [Pulmo-Aide]) 1 each MC TID [facility] Polyethylene Glycol (Miralax) 17 gm PO DAILY PRN PRN Reason: Constipation Polyethylene Glycol (Miralax) 17 gm PO DAILY PRN PRN Reason: Constipation Potassium Chloride (Klor-Con M20) 40 meq PO ONETIME ONE Stop: 11/18/16 15:01 Last Admin: 11/18/16 15:20 Dose: 40 meq Potassium Chloride (Klor-Con M20) 20 meq PO TID [place] Last Admin: 11/20/16 17:20 Dose: Not Given Potassium Chloride (Klor-Con M20) 40 meq PO TID [facility] Last Admin: 11/21/16 09:36 Dose: 40 meq - Exam General: Alert, Cooperative Lungs: Clear to Auscultation, Normal Respiratory Effort GI/Abdominal Exam: Normal Bowel Sounds, Distended (markedly improved from yesterday. ) Consult PN Assessment/Plan Procedures: Procedures AIRWAY INHALATION TREATMENT (03/05/16) ASSAY OF AMYLASE (03/05/16) ASSAY OF CK (CPK) (03/05/16) ASSAY OF MAGNESIUM (03/05/16) ASSAY OF NATRIURETIC PEPTIDE (04/09/16) ASSAY OF PHOSPHORUS (03/05/16) ASSAY OF TROPONIN QUANT (04/09/16) BLOOD CULTURE FOR BACTERIA (03/05/16) BLOOD GASES ANY COMBINATION (04/09/16) CHEST X-RAY 1 VIEW FRONTAL (04/09/16) CHEST X-RAY 2VW FRONTAL&LATL (05/14/16) CINE/VID X-RAY THROAT/ESOPH (05/10/16) COMPLETE CBC AUTOMATED (03/05/16) COMPLETE CBC W/AUTO DIFF WBC (05/14/16) COMPREHEN METABOLIC PANEL (03/05/16) CREATINE MB FRACTION (03/05/16) CRITICAL CARE ADDL 30 MIN (04/09/16) CRITICAL CARE FIRST HOUR (04/09/16) CULTURE AEROBIC IDENTIFY (05/14/16) CULTURE OTHR SPECIMN AEROBIC (05/14/16) ELECTROCARDIOGRAM TRACING (04/09/16) EMERGENCY DEPT VISIT (03/05/16) EMERGENCY DEPT VISIT (03/02/15) EMERGENCY DEPT VISIT (03/02/15) EVALUATE PT USE OF INHALER (03/05/16) FIBRIN DEGRADATION QUANT (03/05/16) GAIT TRAINING THERAPY (03/05/16) GLUCOSE BLOOD TEST (03/05/16) GLYCOSYLATED HEMOGLOBIN TEST (08/19/16) HYDRATE IV INFUSION ADD-ON (04/09/16) INFLUENZA ASSAY W/OPTIC (05/15/16) INSERT EMERGENCY AIRWAY (04/09/16) INSERT TEMP BLADDER CATH (04/09/16) KNEE ARTHROSCOPY/SURGERY (12/07/12) LIPID PANEL (05/17/16) METABOLIC PANEL TOTAL CA (08/19/16) MICROBE SUSCEPTIBLE NADIR (10/31/16) MRI JNT OF LWR EXTRE W/O DYE (11/27/12) NON-ROUTINE BL DRAW 3/> YRS (04/09/16) OCCULT BLD FECES 1-3 TESTS (03/05/16) OCCULT BLOOD FECES (03/05/16) PROTHROMBIN TIME (03/05/16) PT EVALUATION (03/05/16) ROUTINE VENIPUNCTURE (08/19/16) SMEAR GRAM STAIN (05/14/16) THER/PROPH/DIAG INJ IV PUSH (04/09/16) THERAPEUTIC ACTIVITIES (03/05/16) THROMBOPLASTIN TIME PARTIAL (03/05/16) TX/PRO/DX INJ NEW DRUG ADDON (04/09/16) TX/PRO/DX INJ SAME DRUG VETERINARY PRACTITIONER (04/09/16) URINALYSIS AUTO W/SCOPE (10/31/16) URINE BACTERIA CULTURE (10/31/16) URINE CULTURE/COLONY COUNT (10/31/16) VITAL CAPACITY TEST (03/05/16) WITHDRAWAL OF ARTERIAL BLOOD (04/09/16) X-RAY EXAM OF ABDOMEN (03/05/16) X-RAY EXAM OF KNEE 3 (11/24/12) X-RAY EXAM OF PELVIS (11/24/12) X-RAY EXAM SERIES ABDOMEN (03/05/16) (1) Abdominal distension (gaseous) SNOMED Code(s): 096205751 Code(s): R14.0 - ABDOMINAL DISTENSION (GASEOUS) Current Visit: Yes (2) CHF (congestive heart failure) SNOMED Code(s): 94342093 Code(s): I50.9 - HEART FAILURE, UNSPECIFIED Current Visit: Yes Qualifiers: Congestive heart failure type: unspecified congestive heart failure type Congestive heart failure chronicity: acute on chronic Qualified Code(s): I50.9 - Heart failure, unspecified (3) Pleural effusion SNOMED Code(s): 00872970 Code(s): J90 - PLEURAL EFFUSION, NOT ELSEWHERE CLASSIFIED Current Visit: Yes (4) Pneumonia SNOMED Code(s): 544685735 Code(s): J18.9 - PNEUMONIA, UNSPECIFIED ORGANISM Current Visit: Yes Qualifiers: Pneumonia type: due to unspecified organism Problem List Initiated/Reviewed/Updated: Yes Plan: appears to be passing the swallowed gas from his bipap. no further recommendations at this point.
[2016-11-22] MEDS: Simvastatin 10 MG Tab PO SCH (21:02)
[2016-11-22] MEDS: Enoxaparin 30 MG/0.3 ML Syringe SUBCUT SCH (21:02)
[2016-11-22] MEDS: Donepezil 5 MG Tab PO SCH (21:05)
[2016-11-23] MEDS: Levofloxacin/Dextrose 5%-Water 750 MG in Premix Bag 1 BAG IV SCH (00:30)
[2016-11-23] MEDS: Metoclopramide 10 MG/2 ML SDV IV SCH ×2 (00:50→06:28)
[2016-11-23] MEDS: Sodium Chloride 0.9% 10 ML Syringe FLUSH PRN ×2 (01:22→06:29)
[2016-11-23] MEDS: Albuterol/Ipratropium 3.0-0.5 MG/3 ML Neb Soln NEB PRN ×2 (02:46→07:29)
[2016-11-23] MEDS: Finasteride 5 MG Tab PO SCH (09:17)
[2016-11-23] MEDS: Lutein/Minerals/Vitamin C/Vitamin E Acetate Cap PO SCH (09:17)
[2016-11-23] MEDS: Furosemide 40 MG Tab PO SCH (09:17)
[2016-11-23] MEDS: glipiZIDE 5 MG Tab PO SCH (09:17)
[2016-11-23] MEDS: Clopidogrel 75 MG Tab PO SCH (09:18)
[2016-11-23] MEDS: Carvedilol 3.125 MG Tab PO SCH (09:18)
[2016-11-23] MEDS: Potassium Chloride 20 MEQ Tab.ER PO SCH (09:18)
[2016-11-23] MEDS: predniSONE 20 MG Tab PO SCH (09:19)
[2016-11-23] MEDS: Aspirin 81 MG Tab.Chew PO SCH (09:19)
[2016-11-23] MEDS: Spironolactone 25 MG Tab PO SCH (09:19)
[2016-11-23 09:20] VITALS: BP 122/66
[2016-11-23] MEDS: Isosorbide Mononitrate 30 MG Tab.ER PO SCH (09:20)
[2016-11-23] MEDS: Lisinopril 2.5 MG Tab PO SCH (09:20)
[2016-11-23] MEDS: Tiotropium Inhaler 18 MCG Inhalation Powder Cap Kit of 5 INH SCH (09:21)
--- NOTE | 2016-11-23 09:28 | PCM.PN ---
- General Info Date of Service: 11/23/16 Subjective Update: Patient had a terrible night, with difficulty in breathing. While his oxygenation remains okay he seems to have difficulty breathing mostly due to anxiety. Is not presumed level of oxygenation 3 L by nasal cannula. No fever cough lessening overnight. - Review of Systems General: Denies: Fever HEENT: Reports: No Symptoms Pulmonary: Reports: Shortness of Breath Psychiatric: Reports: Anxiety - Patient Data Vitals - Most Recent: Last Vital Signs Temp 97.4 F 11/22/16 21:00 Pulse 83 11/23/16 09:18 Resp 20 11/23/16 00:00 BP 122/66 11/23/16 09:20 Pulse Ox 95 11/23/16 07:40 Weight - Most Recent: 73.346 kg I&O - Last 24 Hours: Intake & Output 11/22/16 11/23/16 11/23/16 22:59 06:59 14:59 Output Total 300 Balance -300 Lab Results Last 24 Hours: Laboratory Results - last 24 hr 11/22/16 11/23/16 11/23/16 Range/Units 17:45 06:15 06:15 WBC 6.6 (4.5-12.0) X10-3/uL RBC 3.56 L (4.30-5.75) x10(6)uL Hgb 10.6 L (11.5-15.5) g/dL Hct 32.5 (30.0-51.3) % MCV 91.3 (80-96) fL MCH 29.9 (27.7-33.6) pg MCHC 32.7 (32.2-35.4) g/dL RDW 14.5 (11.5-15.5) % Plt Count 158 (125-369) X10(3)uL MPV 8.8 (7.4-10.4) fL Neut % (Auto) 84.5 H (46-82) % Lymph % (Auto) 6.8 L (13-37) % [place] % (Auto) 8.4 (4-12) % Eos % (Auto) 0 L (1.0-5.0) % Baso % (Auto) 0 (0-2) % Neut # (Auto) 5.6 (1.6-8.3) # Lymph # (Auto) 0.4 L (0.6-5.0) # [place] # (Auto) 0.6 (0.0-1.3) # Eos # (Auto) 0.0 (0.0-0.8) # Baso # (Auto) 0.0 (0.0-0.2) # Sodium 142 (135-145) mmol/L Potassium 4.7 (3.5-5.3) mmol/L Chloride 104 (100-110) mmol/L Carbon Dioxide 32 H (23-29) mmol/L BUN 32 H (8-23) mg/dL Creatinine 1.4 H (0.6-1.3) mg/dL Est Cr Clr Drug Dosing 39.83 mL/min Estimated GFR (MDRD) 48 L (>60) BUN/Creatinine Ratio 22.9 H (9-20) Glucose 169 H (80-116) mg/dL POC Glucose 239 H (80-116) mg/dL Calcium 9.2 (8.6-10.2) mg/dL Total Bilirubin 0.5 (0.1-1.3) mg/dL AST 36 H D (5-27) IU/L ALT 44 H D (14-26) IU/L Alkaline Phosphatase 60 (56-112) IU/L B-Natriuretic Peptide (0-100) pg/mL Total Protein 6.4 (6.0-8.0) g/dL Albumin 3.2 (3.2-4.6) g/dL Globulin 3.2 g/dL Albumin/Globulin Ratio 1.0 09/16/17 Range/Units 06:15 WBC (4.5-12.0) X10-3/uL RBC (4.30-5.75) x10(6)uL Hgb (11.5-15.5) g/dL Hct (30.0-51.3) % MCV (80-96) fL MCH (27.7-33.6) pg MCHC (32.2-35.4) g/dL RDW (11.5-15.5) % Plt Count (125-369) X10(3)uL MPV (7.4-10.4) fL Neut % (Auto) (46-82) % Lymph % (Auto) (13-37) % [place] % (Auto) (4-12) % Eos % (Auto) (1.0-5.0) % Baso % (Auto) (0-2) % Neut # (Auto) (1.6-8.3) # Lymph # (Auto) (0.6-5.0) # [place] # (Auto) (0.0-1.3) # Eos # (Auto) (0.0-0.8) # Baso # (Auto) (0.0-0.2) # Sodium (135-145) mmol/L Potassium (3.5-5.3) mmol/L Chloride (100-110) mmol/L Carbon Dioxide (23-29) mmol/L BUN (8-23) mg/dL Creatinine (0.6-1.3) mg/dL Est Cr Clr Drug Dosing mL/min Estimated GFR (MDRD) (>60) BUN/Creatinine Ratio (9-20) Glucose (80-116) mg/dL POC Glucose (80-116) mg/dL Calcium (8.6-10.2) mg/dL Total Bilirubin (0.1-1.3) mg/dL AST (5-27) IU/L ALT (14-26) IU/L Alkaline Phosphatase (56-112) IU/L B-Natriuretic Peptide 1000 H* (0-100) pg/mL Total Protein (6.0-8.0) g/dL Albumin (3.2-4.6) g/dL Globulin g/dL Albumin/Globulin Ratio Med Orders - Current: Current Medications Acetaminophen (Tylenol) 650 mg PO Q4H PRN PRN Reason: Pain/Fever Albuterol (Ventolin Hfa) 0 gm INH Q4H PRN PRN Reason: Shortness of Breath Last Admin: 11/20/16 13:17 Dose: 2 inhalation Albuterol (Proventil Neb Soln) 2.5 mg NEB Q4H PRN PRN Reason: SOB/WHEEZING/COUGH Last Admin: 11/22/16 15:54 Dose: 2.5 mg Albuterol/Ipratropium (Duoneb 3.0-0.5 Mg/3 Ml) 3 ml NEB Q4H PRN PRN Reason: Shortness of Breath Last Admin: 11/23/16 07:29 Dose: 3 ml Aspirin (Aspirin) 81 mg PO DAILY [place] Last Admin: 11/23/16 09:19 Dose: 81 mg Bisacodyl (Dulcolax) 10 mg RECTAL DAILY PRN PRN Reason: Constipation Last Admin: 11/20/16 11:19 Dose: 10 mg Carvedilol (Coreg) 3.125 mg PO DAILY [facility] Last Admin: 11/23/16 09:18 Dose: 3.125 mg Clopidogrel Bisulfate (Plavix) 75 mg PO DAILY [facility] Last Admin: 11/23/16 09:18 Dose: 75 mg Donepezil HCl (Aricept) 5 mg PO BEDTIME [facility] Last Admin: 11/22/16 21:05 Dose: 5 mg Enoxaparin Sodium (Lovenox) 30 mg SUBCUT Q24H [facility] Last Admin: 11/22/16 21:02 Dose: 30 mg Finasteride (Proscar) 5 mg PO DAILY [facility] Last Admin: 11/23/16 09:17 Dose: 5 mg Furosemide (Lasix) 40 mg PO BIDDIURETIC [facility] Last Admin: 11/23/16 09:17 Dose: 40 mg Glipizide (Glucotrol) 2.5 mg PO DAILY [facility] Last Admin: 11/23/16 09:17 Dose: 2.5 mg Sodium Chloride (Normal Saline) 250 mls @ 100 mls/hr IV ASDIRECTED [facility] Last Admin: 11/18/16 16:40 Dose: 100 mls/hr Levofloxacin/Dextrose 750 mg/ (Premix) 150 mls @ 100 mls/hr IV Q24H [facility] Last Admin: 11/23/16 00:30 Dose: 100 mls/hr Isosorbide Mononitrate (Imdur) 30 mg PO DAILY [facility] Last Admin: 11/23/16 09:20 Dose: 30 mg Lactulose (Chronulac) 10 gm PO DAILY PRN PRN Reason: CONSTIPATION Lisinopril (Prinivil) 2.5 mg PO DAILY [facility] Last Admin: 11/23/16 09:20 Dose: 2.5 mg Lorazepam (Ativan) 0.25 mg PO Q8H PRN PRN Reason: ANXIETY Last Admin: 11/22/16 21:06 Dose: 0.25 mg Magnesium Hydroxide (Milk Of Magnesia) 30 ml PO DAILY PRN PRN Reason: Constipation Last Admin: 11/20/16 10:11 Dose: 30 ml Metoclopramide HCl (Reglan) 5 mg IV Q6H [facility] Last Admin: 11/23/16 06:28 Dose: 5 mg Ondansetron HCl (Zofran Odt) 4 mg PO Q6H PRN PRN Reason: nausea, able to take PO Polyethylene Glycol (Miralax) 17 gm PO DAILY PRN PRN Reason: Constipation Potassium Chloride (Klor-Con M20) 20 meq PO TID [facility] Last Admin: 11/23/16 09:18 Dose: 20 meq Prednisone (Prednisone) 60 mg PO DAILY [facility] Last Admin: 11/23/16 09:19 Dose: 60 mg Simvastatin (Zocor) 10 mg PO BEDTIME [place] Last Admin: 11/22/16 21:02 Dose: 10 mg Sodium Chloride (Saline Flush) 10 ml FLUSH ASDIRECTED PRN PRN Reason: Keep Vein Open Last Admin: 11/23/16 06:29 Dose: 10 ml Spironolactone (Aldactone) 25 mg PO DAILY [facility] Last Admin: 11/23/16 09:19 Dose: 25 mg Terazosin HCl (Hytrin) 4 mg PO BEDTIME [facility] Last Admin: 11/22/16 21:04 Dose: 4 mg Tiotropium [place] (Spiriva Handihaler) 18 mcg INH DAILY [facility] Last Admin: 11/23/16 09:21 Dose: 1 inhalation Vit C/Vit E/Zinc/Copper/Lutein (Ocuvite Lutein) 1 each PO DAILY [facility] Last Admin: 11/23/16 09:17 Dose: 1 each Discontinued Medications Acetaminophen (Tylenol) 650 mg PO Q4H PRN PRN Reason: Pain (Mild 1-3)/fever Diphenhydramine HCl (Benadryl) 50 mg IM ONETIME ONE Stop: 11/19/16 12:56 Last Admin: 11/19/16 13:29 Dose: 50 mg Enoxaparin Sodium (Lovenox) 80 mg SUBCUT ONETIME ONE Stop: 11/19/16 04:45 Last Admin: 11/19/16 07:57 Dose: Not Given Enoxaparin Sodium (Lovenox) 70 mg SUBCUT ONETIME ONE Stop: 11/19/16 04:45 Last Admin: 11/19/16 05:24 Dose: 70 mg Furosemide (Lasix) 80 mg PO DAILY [facility] Furosemide (Lasix) 40 mg IVPUSH NOW ONE Stop: 11/18/16 17:40 Last Admin: 11/18/16 17:53 Dose: 40 mg Furosemide (Lasix) 60 mg IVPUSH NOW ONE Stop: 11/19/16 08:07 Last Admin: 11/19/16 08:36 Dose: 60 mg Furosemide (Lasix) 40 mg IVPUSH ONETIME ONE Stop: 11/19/16 16:01 Last Admin: 11/19/16 16:10 Dose: 40 mg Furosemide (Lasix) 40 mg PO BIDDIURETIC [place] Last Admin: 11/21/16 09:37 Dose: 40 mg Hydroxyzine HCl (Atarax) 25 mg PO Q6H PRN PRN Reason: Anxiety Levofloxacin/Dextrose 500 mg/ (Premix) 100 mls @ 100 mls/hr IV Q24H [facility] Last Admin: 11/19/16 16:52 Dose: Not Given Sodium Chloride (Normal Saline) 250 mls @ 500 mls/hr IV ONETIME ONE Stop: 11/19/16 13:29 Last Admin: 11/19/16 12:53 Dose: 500 mls/hr Iopamidol (Isovue-370 (76%)) 64 ml IV ONETIME ONE Stop: 11/19/16 12:47 Last Admin: 11/19/16 14:02 Dose: 64 ml Lorazepam (Ativan) 0.5 mg PO ONETIME ONE Stop: 11/21/16 03:47 Last Admin: 11/21/16 03:59 Dose: 0.5 mg Methylprednisolone Sodium Succinate (Solu-Medrol) 125 mg IVPUSH Q8H [facility] Last Admin: 11/20/16 17:20 Dose: Not Given Methylprednisolone Sodium Succinate (Solu-Medrol) 125 mg IVPUSH DAILY [facility] Last Admin: 11/21/16 09:36 Dose: 125 mg Morphine Sulfate (Morphine) 1 mg IVPUSH Q2H PRN PRN Reason: Dyspnea Last Admin: 11/19/16 03:40 Dose: 1 mg Morphine Sulfate (Morphine) 1 mg IVPUSH Q1H PRN PRN Reason: Dyspnea Last Admin: 11/21/16 06:46 Dose: 1 mg Non-Formulary Medication (Compressor, For Nebulizer [Pulmo-Aide]) 1 each MC TID [place] Polyethylene Glycol (Miralax) 17 gm PO DAILY PRN PRN Reason: Constipation Polyethylene Glycol (Miralax) 17 gm PO DAILY PRN PRN Reason: Constipation Potassium Chloride (Klor-Con M20) 40 meq PO ONETIME ONE Stop: 11/18/16 15:01 Last Admin: 11/18/16 15:20 Dose: 40 meq Potassium Chloride (Klor-Con M20) 20 meq PO TID [facility] Last Admin: 11/20/16 17:20 Dose: Not Given Potassium Chloride (Klor-Con M20) 40 meq PO TID [facility] Last Admin: 11/21/16 09:36 Dose: 40 meq - Exam Quality Assessment: Supplemental Oxygen General: Alert, Oriented HEENT: Pupils Equal Neck: Supple Lungs: Clear to Auscultation, Normal Respiratory Effort Cardiovascular: Regular Rate, Irregular Rhythm - Problem List & Annotations (1) CHF (congestive heart failure) SNOMED Code(s): 20387075 Code(s): I50.9 - HEART FAILURE, UNSPECIFIED Status: Acute Current Visit: Yes Qualifiers: Congestive heart failure type: unspecified congestive heart failure type Congestive heart failure chronicity: acute on chronic Qualified Code(s): I50.9 - Heart failure, unspecified (2) Pneumonia SNOMED Code(s): 746877732 Code(s): J18.9 - PNEUMONIA, UNSPECIFIED ORGANISM Status: Acute Current Visit: Yes Qualifiers: Pneumonia type: due to unspecified organism (3) COPD (chronic obstructive pulmonary disease) SNOMED Code(s): 23777456 Code(s): J44.9 - CHRONIC OBSTRUCTIVE PULMONARY DISEASE, UNSPECIFIED Status : Acute Current Visit: No (4) Type 2 diabetes mellitus SNOMED Code(s): 13654449 Code(s): E11.9 - TYPE 2 DIABETES MELLITUS WITHOUT COMPLICATIONS Status: Acute Current Visit: No (5) Hx of coronary artery bypass graft SNOMED Code(s): 798828697, 199407541 Code(s): Z95.1 - PRESENCE OF AORTOCORONARY BYPASS GRAFT Status: Chronic Current Visit: No - Problem List Review Problem List Initiated/Reviewed/Updated: Yes - My Orders Last 24 Hours: My Active Orders 11/22/16 08:44 Chest 1V Frontal [CR] Stat - Plan Plan:: The family has requested consultation with hospice care. I see no need to keep him here today,will discharge him to [facility].
--- NOTE | 2016-11-24 00:26 | DISCH ---
DISCHARGE DATE: 11/23/2016 REASON FOR VISIT: 1. Pneumonia. 2. Chronic obstructive pulmonary disease exacerbation. 3. CHF. 4. Atrial fibrillation. 5. Type 2 diabetes. 6. Hypertension. DISCHARGE DIAGNOSIS: 1. Pneumonia. 2. Chronic obstructive pulmonary disease exacerbation. 3. Congestive heart failure. 4. Atrial fibrillation. 5. Type 2 diabetes. 6. Hypertension. 7. End-stage chronic obstructive pulmonary disease. 8. Palliative care status. BRIEF HISTORY AND HOSPITAL COURSE: This is an 85-year-old male, who was admitted through the ER because of shortness of breath. He was admitted for CHF and COPD exacerbation, possibly pneumonia, treated with IV antibiotics, prednisone, and Lasix. Symptoms came back to the baseline of his oxygenation use. However, he felt short of breath and was not markedly improving from his state. The family felt that he needed to consult hospice care. He is from the group home. I discharged him on on their care and they will write the orders there to see what medications is to continue or to discontinue. Please note that I had spent more than 35 minutes in the discharge of this patient. /[id number] RAVI/STEVO
--- NOTE | 2016-11-25 10:24 | CR ---
INDICATION: Generalized weakness. CHEST: An AP upright view of the chest was obtained 11/22/2016 and compared with 04/10/2016 and 11/18/2016, revealing decreased pleuroparenchymal changes at the right lung base with continued infiltration in the right mid lung field and both lung bases. Upper lung field pulmonary vasculature is prominent, compatible with CHF or fluid overload or renal failure, etc. - correlate clinically. The heart did not appear grossly enlarged to strongly suggest CHF. Evidence of previous median sternotomy is again noted. An increase in degree of CHF may be present - minimal interstitial lung edema is suggested additionally. IMPRESSION: 1. Decreased pleural effusion and possibly minimal decrease in infiltration at the right lung base, with continued infiltration in the right mid lung field and both lung bases. 2. Possible slight increase in degree of CHF with interstitial lung edema. 3. Other cause of pulmonary vascular congestion should be considered, as the heart is not grossly enlarged. MTDD
== END 2016-11-23 10:25 | disposition hospice, inpatient (51) | DRG 190 ==
LOC: FB.ED 13:51 → FB.MS 15:25 → FB.ICU 11-19 06:37 → FB.MS 11-20 11:15
PROVIDERS: ADMIT Emergency Medicine; ATTEND Family Medicine
DX: J44.0 Chronic obstructive pulmonary disease with (acute) lower respiratory infection (principal); J18.9 Pneumonia, unspecified organism; J90 Pleural effusion, not elsewhere classified; J44.1 Chronic obstructive pulmonary disease with (acute) exacerbation; Z51.5 Encounter for palliative care; Z66 Do not resuscitate; R09.02 Hypoxemia; Z87.891 Personal history of nicotine dependence; E87.6 Hypokalemia; D64.9 Anemia, unspecified; E11.9 Type 2 diabetes mellitus without complications; N18.3 Chronic kidney disease, stage 3 (moderate); R79.1 Abnormal coagulation profile; R05 Cough; R06.02 Shortness of breath; I50.9 Heart failure, unspecified; R14.0 Abdominal distension (gaseous); I49.9 Cardiac arrhythmia, unspecified; Z95.5 Presence of coronary angioplasty implant and graft; Z86.73 Personal history of transient ischemic attack (TIA), and cerebral infarction without residual deficits; M19.90 Unspecified osteoarthritis, unspecified site; Z95.1 Presence of aortocoronary bypass graft; H91.90 Unspecified hearing loss, unspecified ear; H54.7 Unspecified visual loss; Z96.659 Presence of unspecified artificial knee joint; Z96.649 Presence of unspecified artificial hip joint; Z88.1 Allergy status to other antibiotic agents; Z79.82 Long term (current) use of aspirin; Z79.84 Long term (current) use of oral hypoglycemic drugs; Z88.9 Allergy status to unspecified drugs, medicaments and biological substances
CPT/HCPCS: 36415; 71010; 80048; 83735; 83880; 84484; 85027; 93005; 99285; A9270; J7050; 71275; 74000; 80053; 81001; 82272; 82962; 85025; 85379; 94640; 94640-76; 97110-GO; 97161-GP; 97165-GO; 97530-GP; J1200; J1650; J1940; J1956; J2270; J2765; J2930; J7620; Q9967